=== PATIENT | female | born 1960 | race Caucasian/White ===

== ENCOUNTER 2023-07-04 17:17 | Emergency (ER) | payer OTHER, SELFPAY ==
[2023-07-04 17:31] VITALS: BP 141/69; PULSE 59; RESP 16; TEMP 36.9; O2SAT 100
--- NOTE | 2023-07-04 17:48 | ED.UPPEXIN ---
HPI - Extremity Injury (Upper) General Chief Complaint: Extremity Problem,Nontraumatic Stated Complaint: right shoulder pain Time Seen by Provider: 07/04/23 18:03 Source: patient and RN notes reviewed Mode of arrival: ambulatory Limitations: no limitations History of Present Illness HPI narrative: 63-year-old female presents with concern for right shoulder pain. She reports she has had pain since mid April. She denies known injury or trauma. She reports she has tried multiple things such as medication, heat, ice, 10s units without relief. She reports pain is progressing, it is painful to reach in her back pocket. At the end of the day after typing a lot her hand feels numb. Denies warmth, redness, bruising. MD complaint: injury to: right and shoulder Related Data Home Medications Medication Instructions Recorded Confirmed acetaminophen 300 mg-codeine 30 mg tablet 07/04/23 tablet estradiol 0.025 mg/24 hr weekly 1 patch transdermal WEEKLY 07/04/23 07/04/23 transdermal patch ibandronate 150 mg tablet 150 mg PO ONCE 07/04/23 07/04/23 levothyroxine 75 mcg tablet 75 mcg PO DAILY 07/04/23 07/04/23 (Synthroid) metoprolol tartrate 25 mg tablet 50 mg PO DAILY 07/04/23 07/04/23 montelukast 10 mg tablet 10 mg PO DAILY 07/04/23 07/04/23 (Singulair) rosuvastatin 10 mg tablet (Crestor) 10 mg PO DAILY 07/04/23 07/04/23 Allergies Allergy/AdvReac Type Severity Reaction Status Date / Time No Known Allergies Allergy Verified 07/04/23 17:57 Review of Systems Review of Systems: CONSTITUTIONAL: Denies malaise, chills, sweats, or fever. SKIN: Denies rash or itching, open skin, laceration, abrasion, redness, warmth, swelling. MUSCULOSKELETAL: Reports right shoulder pain NEUROLOGIC: Denies numbness, weakness All systems reviewed & are unremarkable except as noted in HPI and below PMFSH Comments At time of signature, agree with nursing past medical, surgical, social and family history. There is no relevant family history pertinent to the presenting complaint Exam Narrative: GENERAL: Well-appearing, well-nourished, and in no acute distress. HEAD: Normocephalic, atraumatic. EYES: PERRLA, conjunctivae clear NECK: Supple. CHEST: Speaks in full sentences. No respiratory distress. HEART: Regular rate and rhythm. Normal and equal peripheral pulses. EXTREMITIES: Right upper extremity has grossly normal strength and sensation, limited range of motion. No edema or ecchymosis. Normal sensation with sensitivity to light touch and pain. No point tenderness. No open wounds, no skin tenting, no devitalized tissue or atrophy, no trophic changes, no obvious deformity, alignment normal, nearby joints and structures intact. Distal pulses palpable and equal bilaterally, skin warm, dry, pink. Capillary refill less than 3 seconds. SKIN: Warm, dry, no rash. NEURO: Alert and oriented x3. PSYCH: Normal mood and affect Course Course Emergency Course: Patient is aware of diagnosis, understands and agrees to treatment plan. Anticipatory guidance given. Patient agrees to follow-up as directed and is aware of reasons to seek care at the emergency department. Portions of this record may have been created with voice recognition software Level of Care: Express Care Visit Vital Signs Vital signs: Vital Signs Temperature 98.4 F 07/04/23 17:31 Pulse Rate 59 L 07/04/23 17:31 Respiratory Rate 16 07/04/23 17:31 Blood Pressure 141/69 H 07/04/23 17:31 Pulse Oximetry 100 07/04/23 17:31 Oxygen Delivery Room Air 07/04/23 17:31 Temperature 98.4 F 07/04/23 17:31 Pulse Rate 59 L 07/04/23 17:31 Respiratory Rate 16 07/04/23 17:31 Blood Pressure 141/69 H 07/04/23 17:31 Pulse Oximetry 100 07/04/23 17:31 Oxygen Delivery Room Air 07/04/23 17:31 Reviewed. MDM - Extremity Injury (Upper) MDM Narrative Medical decision making narrative: Patients pain is consistent with musculoskeletal etiology. No signs of neuro
== END 2023-07-04 18:15 | disposition home or self-care (01) ==
PROVIDERS: Emergency Provider Nurse Practitioner
DX: M25.511 Pain in right shoulder (principal); Z79.899 Other long term (current) drug therapy
CPT/HCPCS: 99213; G0463

== ENCOUNTER 2023-08-18 15:30 | Outpatient (RCR) | payer OTHER, SELFPAY ==
--- NOTE | 2023-07-29 16:30 | OPREHPOC ---
Outpatient Therapy Plan of Care This is a Multidisciplinary Plan of Care that may contain components documented by all disciplines (PT, OT, and ST.) PT Problem 1 PT Problem #1 Knowledge Deficit PT Goal 1 Goal 1* indep with HEP PT Problem 2 PT Problem #2 Pain PT Goal 1 Goal 1* pt report pain at worst in R shoulder of 3/10 2* with palpation, minimal spasm over R upper traps PT Problem 3 PT Problem #3 Impaired Strength PT Goal 1 Goal improve gleno-humeral position and muscle recruitment of shoulder girdle: 1* pt able to perform 20 reps of prone scapular strengthening exercises 2* with motions of standing R shoulder, no visible activation of R upper traps
--- NOTE | 2023-07-29 16:30 | PTOPEVAL1 ---
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 Onset was in April with increased activity of moving. She has had shoulder pain in the past. Also has scoliosis. She is active and motivated, has been doing her previous HEP with theraband. With the evaluation, she has poor positioning of her shoulder, with rounded posture and winging of the scapula; weakness of scapular musculature with recruitment of upper traps for active shoulder motions; Pain over lateral GH joint. And spasms over R upper traps. Skilled PT services are indicated for modalities to decrease pain, therapeutic exercises to increase scapular- thoracic strength and improve recruitment of the musculature of her shoulder girdle, with education for HEP and posture. Plan of Care Interventions Hot Pack/Cold Pack,Manual Therapy,Neuro Re- educ
--- NOTE | 2023-08-21 13:46 | PTOPDC ---
Assessment and note entered by Marylou Ho, PT Discharge Information Assessment Status Discharge - Pt Not Present Diagnosis R shoulder pain Onset End April 2023 Assessment PT Clinical Summary Marissa has received 4 PT sessions. She called today and canceled the remaining PT appointments, said she has a rotator cuff tear and dr told her to stop therapy. Discharge PT treatments. The goals were not assessed. Plan of Care PT Services Indicated No
== END 2023-08-21 14:41 | disposition home or self-care (01) ==
LOC: ANHPT 15:30
PROVIDERS: Visit Provider Nurse Practitioner
DX: M75.81 Other shoulder lesions, right shoulder (principal)
CPT/HCPCS: 97110; 97140; 97161

== ENCOUNTER 2023-12-08 15:07 | Outpatient (CLI) | payer OTHER, SELFPAY ==
--- NOTE | ~2023-12-08 | CT_ITS ---
CT of the Abdomen and Pelvis: Indication: Abdominal pain Technique: 2.5 mm axial scans were obtained through the abdomen and pelvis following intravenous adm inistration of 100 cc of Omnipaque 350. Dose reduction technique was used on this scan by utilizing a utomated exposure control and iterative reconstruction technique. The dose-length product (DLP) was 2 26.57 mGy-cm. Findings: Scans through the lung bases are unremarkable. The liver, spleen, pancreas, gallbladder, adrenals and right kidney are within normal limits. 7 mm no nobstructing left renal stone noted. No evidence of aortic aneurysm. No lymphadenopathy. No bowel obstruction or bowel wall thickening. There is no evidence to suggest acute appendicitis. Images through the pelvis were performed. Urinary bladder unremarkable. No pelvic mass seen. No ascit es. Impression: 7 mm nonobstructing left renal stone. Reviewed, dictated and finalized at [facility]. 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
[2023-12-08 15:38] LABS: Estimated Glomerular Filt Rate > 60
== END 2023-12-08 15:08 | disposition home or self-care (01) ==
PROVIDERS: PCP Family Medicine; Visit Provider Nurse Practitioner
DX: N20.0 Calculus of kidney (principal)
CPT/HCPCS: 74177; Q9967

== ENCOUNTER 2024-01-16 00:37 | Day surgery (SDC) | payer OTHER, SELFPAY ==
[2024-01-06 10:50] VITALS: BMI 22.2
--- NOTE | 2024-01-14 10:38 | SUR.PREOP ---
Patient called regarding upcoming procedure. Voicemail left regarding new appointment time.
[2024-01-16 12:39] VITALS: BP 132/66; PULSE 72; RESP 20; TEMP 36.1; O2SAT 100
[2024-01-16] MEDS: LACTATED RINGERS 1,000 ML 150 ML IV CONT (12:53)
--- NOTE | 2024-01-16 13:14 | P.PNAN_ITS ---
Anes - Initial Pre Proc Eval Procedure: Operation Date: 01/16/24 14:30 Proposed Procedures p Esophagogastroduodenoscopy EGD - Odell Worthy MD Date/Time: 01/16/24 13:14 Surgeon: Odell Worthy MD Pre Op Diagnosis: GERD, Eructation, Vomiting Patient Data Age: 63 Gender: F Height: 1.6 m Weight: 55.9 kg Last Vital Signs Temp 36.1 C L 01/16/24 12:39 Pulse 72 01/16/24 12:39 Resp 20 01/16/24 12:39 BP 132/66 01/16/24 12:39 Pulse Ox 100 01/16/24 12:39 O2 Del Method Room Air 01/16/24 12:39 Allergies Allergy/AdvReac Type Severity Reaction Status Date / Time Sulfa (Sulfonamide Allergy Unknown Unknown Verified 01/16/24 12:38 Antibiotics) Home Medications Medication Instructions Recorded Confirmed Type multivitamin 1 tablet PO DAILY 07/09/23 01/06/24 History estradiol 0.025 mg/24 hr weekly 1 patch transdermal WEEKLY 90 days 08/08/23 01/06/24 Rx transdermal patch #12 ea ibandronate 150 mg tablet 150 mg PO MONTHLY #3 tabs 08/08/23 01/06/24 Rx levothyroxine 75 mcg tablet 75 mcg PO DAILY #90 tabs 08/08/23 01/06/24 Rx (Synthroid) metoprolol succinate 25 mg 50 mg PO DAILY #180 tabs 08/08/23 01/06/24 Rx tablet,extended release 24 hr rosuvastatin 10 mg tablet (Crestor) 10 mg PO DAILY #90 tabs 08/08/23 01/06/24 Rx fexofenadine 60 mg tablet (Angelica 60 mg PO Q12H 08/20/23 01/06/24 History Allergy) guaifenesin 600 mg tablet, 600 mg PO BID 08/20/23 01/06/24 History extended release 12 hr (Mucinex) acetaminophen 300 mg-codeine 30 mg 1 tablet PO Q6H PRN cough #20 tabs 10/10/23 01/06/24 Rx tablet fluticasone 500 mcg-salmeterol 50 1 inh inhalation Q12H 11/19/23 01/06/24 History mcg/dose blistr powdr for inhalation (Wixela Inhub) ibandronate 150 mg tablet 150 mg PO MONTHLY 11/19/23 01/06/24 History pantoprazole 20 mg tablet,delayed 20 mg PO QAM 6 weeks #42 tabs 12/16/23 01/06/24 Rx release cefdinir 300 mg capsule 300 mg PO Q12H #14 caps 01/05/24 01/06/24 Rx codeine 10 mg-guaifenesin 100 mg/5 10 ml PO Q4-6H PRN cough #120 mL 01/05/24 01/06/24 Rx mL oral liquid methylprednisolone 4 mg tablets in See Rx Instructions PO PER PKG DIR 01/05/24 01/06/24 Rx a dose pack (Medrol (Jerad)) #21 ea Patient hx anesthesia problems: post op nausea/vomiting Family hx anesthesia problems: none Results Review: All pre-operative results and documents have been reviewed as part of the pre- operative evaluation. [facility] Past Medical History Medical History Abnormal heart rhythm Belching CAD (coronary artery disease) Colon cancer screening Gastroesophageal reflux disease History of kidney stones History of skin cancer HLD (hyperlipidemia) Hypertension Hypothyroidism Migraine Osteoporosis Regurgitation of food RUQ pain Thyroid disorder Surgical History Surgical History History of hernia surgery (~2007) 1993,1994,2007 History of hysterectomy (~2007) History of pelvic surgery (~2019) reconstruction with bladder sling History of sinus surgery (~2
--- NOTE | 2024-01-16 13:14 | PM.HPGS ---
History of Present Illness History of Present Illness Consent: Risks, benefits, and alternatives have been discussed and questions answered. Patient agrees to proceed with procedure. Chief complaint: GERD, Eructation, Vomiting Narrative: Marissa Barbosa is a 63 year old female with belching and regurgitation of food that would cause burning, never had egd Review of Systems Review of Systems: All systems reviewed & are unremarkable except as noted in HPI and below PMFSH Past Medical History Medical History Abnormal heart rhythm Belching CAD (coronary artery disease) Colon cancer screening Gastroesophageal reflux disease History of kidney stones History of skin cancer HLD (hyperlipidemia) Hypertension Hypothyroidism Migraine Osteoporosis Regurgitation of food RUQ pain Thyroid disorder Surgical History Surgical History History of hernia surgery (~2007) 1993,1994,2007 History of hysterectomy (~2007) History of pelvic surgery (~2018) reconstruction with bladder sling History of sinus surgery (~2011) History of wisdom tooth extraction (~1977) Family History Family History Mother Hypertension High cholesterol Thyroid disorder Father Hypertension High cholesterol Grandparent Hypertension High cholesterol Other Skin cancer Thyroid disorder Social History Social History Smoking status: Never smoker Alcohol intake: current Alcohol use details: rarely Substance use: never Substance use type: does not use Current Housing: Decline to Answer Concerned About Future Housing: Decline to Answer Difficulty Paying Gas/Electric Bills: Decline to Answer Difficulty Paying for Meds: Decline to Answer Currently Unemployed: Decline to Answer Education: Decline to Answer Difficulty w/ Childcare or Family Care: Decline to Answer Living arrangements: with family Occupation/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: occupation 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 Spiritual care concerns: No Meds Home Medications and Allergies Home Medications Medication Instructions Recorded Confirmed Type multivitamin 1 tablet PO DAILY 07/09/23 01/06/24 History estradiol 0.025 mg/24 hr weekly 1 patch transdermal WEEKLY 90 days 08/08/23 01/06/24 Rx transdermal patch #12 ea ibandronate 150 mg tablet 150 mg PO MONTHLY #3 tabs 08/08/23 01/06/24 Rx levothyroxine 75 mcg tablet 75 mcg PO DAILY #90 tabs 08/08/23 01/06/24 Rx (Synthroid) metoprolol succinate 25 mg 50 mg PO DAILY #180 tabs 08/08/23 01/06/24 Rx tablet,extended release 24 hr rosuvastatin 10 mg tablet (Crestor) 10 mg PO DAILY #90 tabs 08/08/23 01/06/24 Rx fexofenadine 60 mg tablet (Angelica 60 mg PO Q12H 08/20/23 01/06/24 History Allergy) guaifenesin 600 mg tablet, 600 mg PO BID 08/20/23 01/06/24 History extended release 12 hr (Mucinex) acetaminophen 300 mg-codeine 30 mg 1 tablet PO Q6H PRN cough #20 tabs 10/10/23 01/06/24 Rx tablet fluticasone 500 mcg-salmeterol 50 1 inh inhalation Q12H 11/19/23 01/06/24 History mcg/dose blistr powdr for inhalation (Wixela Inhub) ibandronate 150 mg tablet 150 mg PO MONTHLY 11/19/23 01/06/24 History pantoprazole 20 mg tablet,delayed 20 mg PO QAM 6 weeks #42 tabs 12/16/23 01/06/24 Rx release cefdinir 300 mg capsule 300 mg PO Q12H #14 caps 01/05/24 01/06/24 Rx codeine 10 mg-guaifenesin 100 mg/5 10 ml PO Q4-6H PRN cough #120 mL 01/05/24 01/06/24 Rx mL oral liquid methylprednisolone 4 mg tablets in See Rx Instructions PO PER PKG DIR 01/05/24 01/06/24 Rx a dose pack (Medrol (Jerad)) #21 ea Allergies Allergy/AdvReac Type Severity Reaction Status Date / Time Sulfa (Sulfonamide Allergy Unknown Unknown Verified 01/16/24 12:38 Antibiotics) Riddhi
[2024-01-16 13:28] VITALS: BP 125/68; PULSE 64; RESP 21; O2SAT 100
[2024-01-16 13:38] VITALS: BP 134/66; PULSE 67; RESP 22; O2SAT 100
[2024-01-16 13:48] VITALS: BP 139/79; PULSE 78; RESP 16; O2SAT 100
== END 2024-01-16 13:55 | disposition home or self-care (01) ==
PROVIDERS: PCP Family Medicine; Visit Provider Internal Medicine Gastroenterology
PROC: 0DJ08ZZ Inspection of Upper Intestinal Tract, Via Natural or Artificial Opening Endoscopic (ICD-10-PCS; CPT 43235; principal; 2024-01-16 14:30)
DX: K29.70 Gastritis, unspecified, without bleeding (principal); I25.10 Atherosclerotic heart disease of native coronary artery without angina pectoris; I10 Essential (primary) hypertension; E78.5 Hyperlipidemia, unspecified; E03.9 Hypothyroidism, unspecified; M81.0 Age-related osteoporosis without current pathological fracture; E07.9 Disorder of thyroid, unspecified; Z79.51 Long term (current) use of inhaled steroids
CPT/HCPCS: 43239; 88305; J2001; J2704; J7120

== ENCOUNTER 2024-04-08 22:31 | Emergency (ER) | payer OTHER, SELFPAY ==
--- NOTE | ~2024-04-08 | CT_ITS ---
EXAMINATION: CT abdomen pelvis wo con DATE: 04/09/2024 00:31 INDICATION: Left flank pain and left leg pain. TECHNIQUE: Computed tomography (CT) of the abdomen and pelvis was performed without intravenous contr ast. Automated exposure control and iterative reconstruction technique were employed. The dose-length product was 215.24 mGy-cm. COMPARISON: 12/08/2023 FINDINGS: Lung bases are clear. Heart size is normal. Small amount of atherosclerotic coronary artery calcific location. No pericardial or pleural effusion. Liver, gallbladder, spleen, pancreas, right kidney and bilateral adrenal glands are normal. There is a 5 x 3 x 3 mm proximal left ureteral stone with mild l eft hydronephrosis. No other urolithiasis in either kidney or ureter. The uterus is not identified an d has likely been surgically resected. Normal appendix arising from the tip the cecum which is positi oned in the deep pelvis at the uterine fossa. No bowel obstruction. Bladder is normal. No free intrap eritoneal gas or fluid. No pathologically enlarged abdominal or pelvic lymphadenopathy. Moderate lumb ar levoscoliosis with moderate spondylosis. Couple bone islands at the proximal right femur. IMPRESSION: 1. 5 x 3 x 3 mm proximal left ureteral stone with mild left hydronephrosis. Reviewed, dictated and finalized at location A.
[2024-04-08 22:35] VITALS: BP 146/71; PULSE 62; RESP 20; TEMP 36.4; O2SAT 100
[2024-04-08 23:26] LABS: Basophils Percent Auto 0.1 % (0.2-1.2); Eosinophils Percent Auto 0.1 % (0-4.4); Hematocrit 38.8 % (37.0-47.0); Hemoglobin 12.9 g/dL (12.0-15.0); Immature Granulocyte Absolute 0.02 K/mm3 (0.00-0.031); Immature Granulocyte Percent A 0.3 % (0-0.5); Lymphocytes Absolute Auto 0.62 K/mm3 (0.9-3.2); Lymphocytes Percent Auto 8.5 % (18.3-44.2); Mean Corpuscular HGB Conc 33.2 g/dl (32-36); Mean Corpuscular Hemoglobin 31.1 pg (26-34); Mean Corpuscular Volume 93.5 fl (80-100); Mean Platelet Volume 10.1 fl (7.4-10.4); Monocytes Absolute Auto 0.1 K/mm3 (0.1-0.6); Monocytes Percent Auto 1.8 % (2.6-8.5); Neutrophils Absolute Auto 6.5 K/mm3 (1.3-6.7); Neutrophils Percent Auto 89.2 % (45.5-73.1); Platelet Count Result 220 k/mm3 (150-375); Red Blood Count 4.15 M/mm3 (4.2-5.4); Red Cell Distribution Width 11.9 % (11.5-14.5); White Blood Count 7.3 K/mm3 (4.5-10.0)
[2024-04-08 23:32] LABS: Appearance Urine Clear (Clear); Bacteria Urine None Seen /hpf; Bilirubin Urine Negative (Negative); Blood Urine 3+ (Negative); Color Urine Yellow (Yellow); Glucose Urine UA Negative (Negative); Ketones Urine Negative (Negative); Leukocyte Esterase Ur Negative LEU/UL (Negative); Nitrate Urine Negative (Negative); Non Pathogenic Casts 0-2; Protein Urine Negative (Negative); Specific Grav Ur 1.006 (1.001-1.035); Squamous Epithelial Cell Urine None Seen /hpf (Few); Urobilinogen Urine 0.2 mg/dL (<2.0); WBC Urine 0-5 /hpf (0-3); pH Urine 6.5 (5.0-9.0)
[2024-04-08 23:35] LABS: Add Urine Microscopic? YES
[2024-04-08 23:37] LABS: Alanine Aminotransferase 21 U/L (6-35); Alkaline Phosphatase 67 U/L (38-126); Anion Gap 9 mmol/L (4-12); Aspartate Amino Transferase 31 U/L (14-36); Bilirubin,Total 1.2 mg/dL (0.2-1.3); Blood Urea Nitrogen 12 mg/dL (7-17); Carbon Dioxide 25 mmol/L (22-30); Chloride 104 mmol/L (98-107); Estimated CRCL calculation 59 ml/min; Estimated Glomerular Filt Rate > 60; Glucose 149 mg/dL (65-110); Lipase 88 U/L (23-300); Potassium 4.1 mmol/L (3.4-5.0); Sodium 138 mmol/L (137-145)
--- NOTE | 2024-04-09 00:48 | ED.GENADULT ---
HPI - General Adult General Chief complaint: Abdominal Pain Stated complaint: left flank pain Time Seen by Provider: 04/09/24 00:47 History of Present Illness HPI narrative: patient is a 63-year-old female who presents emergency department chief complaint of left flank pain. Patient reports she has history kidney stones reports around 6:00 a.m. is 40 started having pain in left flank. The patient reports pain is sharp reports feels similar to whenever she has had kidney stones before in the past patient does report that she has had to have lithotripsy patient reports that she is feeling nauseated as well. Related Data Home Medications Medication Instructions Recorded Confirmed multivitamin 1 tablet PO DAILY 07/09/23 04/08/24 fexofenadine 60 mg tablet (Angelica 60 mg PO Q12H 08/20/23 04/08/24 Allergy) fluticasone 500 mcg-salmeterol 50 1 inh inhalation Q12H 11/19/23 04/08/24 mcg/dose blistr powdr for inhalation (Wixela Inhub) ibandronate 150 mg tablet 150 mg PO MONTHLY 11/19/23 04/08/24 Allergies Allergy/AdvReac Type Severity Reaction Status Date / Time Sulfa (Sulfonamide Allergy Unknown Unknown Verified 04/08/24 14:11 Antibiotics) Review of Systems Review of Systems: A 10 system review of systems was completed on the patient and is negative except for what is stated in the HPI. Nursing and ancillary documentation was reviewed. [facility] Past Medical History Medical History Abnormal heart rhythm CAD (coronary artery disease) Colon cancer screening Gastroesophageal reflux disease History of kidney stones History of skin cancer HLD (hyperlipidemia) Hypertension Hypothyroidism Migraine Osteoporosis Regurgitation of food RUQ pain Thyroid disorder Surgical History Surgical History History of hernia surgery (~2007) 1993,1994,2007 History of hysterectomy (~2007) History of pelvic surgery (~2018) reconstruction with bladder sling History of sinus surgery (~2011) History of wisdom tooth extraction (~1977) Family History Family History Mother Hypertension High cholesterol Thyroid disorder Father Hypertension High cholesterol Grandparent Hypertension High cholesterol Other Skin cancer Thyroid disorder Social History Social History Smoking status: Never smoker Alcohol intake: current Alcohol use details: rarely Substance use: never Substance use type: does not use Do You Feel Safe in your Home?: Yes Lack of Transportation: No Lack of Food: Never True Current Housing: I Have Housing Concerned About Future Housing: No Difficulty Paying Gas/Electric Bills: Decline to Answer Difficulty Paying for Meds: Decline to Answer Currently Unemployed: No Education: Master's Degree or Higher Difficulty w/ Childcare or Family Care: No Living arrangements: with family Occupation/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 HEAD: Normocephalic, atraumatic. EYES: PERRLA and EOMI. ENT: Nares clear, no rhinorrhea or epistaxis. Mucous membranes moist. NECK: Supple. CHEST: Clear to auscultation. No respiratory distress. HEART: Regular rate and rhythm. No murmur heard. Normal peripheral pulses. ABDOMEN: Soft, nontender, nondistended, normal active bowel sounds. EXTREMITIES: Normal range of motion. No edema. SKIN: Warm, dry, no rash. NEURO: No focal deficits. Alert and oriented x3. PSYCH: Normal mood and affect. Course Vital Signs Vital signs: Vital Signs Temperature 36.4 C 04/08/24 22:35 Pulse Rate 62 04/08/24 22:35 Respiratory Rate 20
[2024-04-09 01:18] VITALS: BP 143/82; PULSE 64; RESP 18; O2SAT 100
[2024-04-09] MEDS: SODIUM CHLORIDE 0.9% IV 1,000 ML 999 ML IV CONT (01:18)
[2024-04-09] MEDS: ONDANSETRON INJ 4 MG/2 ML VIAL IV PUSH (01:18)
[2024-04-09] MEDS: TAMSULOSIN HCL 0.4 MG CAPSULE PO (01:18)
[2024-04-09] MEDS: MORPHINE SULFATE (*CRX) 4 MG/ML INJ IV PUSH (01:18)
--- NOTE | 2024-04-09 02:52 | PC.NURSE ---
please see down time charting.
== END 2024-04-09 02:37 | disposition home or self-care (01) ==
PROVIDERS: Emergency Provider Emergency Medicine; PCP Family Medicine
DX: N13.2 Hydronephrosis with renal and ureteral calculous obstruction (principal); I25.10 Atherosclerotic heart disease of native coronary artery without angina pectoris; E78.5 Hyperlipidemia, unspecified; E03.9 Hypothyroidism, unspecified; K21.9 Gastro-esophageal reflux disease without esophagitis; M81.0 Age-related osteoporosis without current pathological fracture; Z85.828 Personal history of other malignant neoplasm of skin; Z87.442 Personal history of urinary calculi; Z90.710 Acquired absence of both cervix and uterus
CPT/HCPCS: 36415; 74176; 80053; 81001; 83690; 85025; 96361; 96374; 96375; 99284; A9270; J2270; J2405; J7030

== ENCOUNTER 2024-08-16 16:05 | Outpatient (CLI) | payer BC, SELFPAY ==
--- NOTE | ~2024-08-16 | MR_ITS ---
EXAMINATION: MR ankle LT wo con DATE: 08/16/2024 16:49 INDICATION: Posterior tibial tendinitis TECHNIQUE: Magnetic resonance imaging (MRI) of the left ankle was performed without intravenous contr ast. Sequences included sagittal, coronal, and axial proton-density weighted fast spin echo without a nd with fat saturation. COMPARISON: None. FINDINGS: Medial ankle ligaments: Deep and superficial deltoid ligaments as well as the spring ligament are normal. Lateral ankle ligaments: There is thickening of the anterior inferior tibiofibular ligament and the distal tibiofibular syndes mosis suggestive of scarring related to chronic high ankle sprain. The posterior inferior tibiofibula r ligament. The posterior tibiofibular ligament is normal. The anterior talofibular, calcaneofibular and posterior talofibular ligaments are normal. Tendons: Achilles tendon is normal. Mild tendinopathy and longitudinal split tear of the peroneus brevis tendo n beginning at the level of the retromalleolar groove for the tendon has a C shaped configuration ext ending around the normal peroneus longus tendon at the level of the retromalleolar groove. The perone us brevis tendon split tear completes to separate the tendon into 2 separate components immediately d istal to the tip of the lateral malleolus. The tibialis anterior and extensor hallucis longus and ext ensor digitorum longus tendons are normal. The tibialis posterior, flexor digitorum longus and flexor hallucis longus tendons are normal. Plantar fascia: Moderate-sized plantar calcaneal spur with thickening without significant increased signal of the pro ximal central component of the plantar aponeurosis consistent with chronic enthesopathy. No associate d marrow or surrounding soft tissue edema to suggest acute plantar fasciitis. Bones/other: Bone alignment is normal. There is normal marrow signal with no reactive edema, fracture or pathologi c marrow replacing process. Joint spaces are relatively preserved. Fluid: Physiologic amount fluid in the joint spaces. No abnormal fluid collections. IMPRESSION: 1. Mild peroneus brevis tendinopathy with longitudinal split tear. 2. Likely scarring related to chronic high ankle sprain of the anterior-inferior tibiofibular ligamen t and distal tibiofibular syndesmosis. 3. Chronic plantar enthesopathy with moderate-sized plantar calcaneal spur. Reviewed, dictated and finalized at location A. IMPRESSION: 1. Mild peroneus brevis tendinopathy with longitudinal split tear. 2. Likely scarring related to chronic high ankle sprain of the anterior-inferio r tibiofibular ligament and distal tibiofibular syndesmosis. 3. Chronic plantar enthesopathy with moderate-sized plantar calcaneal spur.
== END 2024-08-16 16:06 | disposition home or self-care (01) ==
LOC: MICIMG 16:08
PROVIDERS: PCP Podiatrist Foot & Ankle Surgery; Visit Provider Podiatrist Foot & Ankle Surgery
DX: M76.822 Posterior tibial tendinitis, left leg (principal); M77.32 Calcaneal spur, left foot
CPT/HCPCS: 73721

== ENCOUNTER 2024-10-12 09:24 | Outpatient (CLI) | payer BC, SELFPAY ==
--- NOTE | ~2024-10-12 | XR_ITS ---
Exam: Abdomen 1V HISTORY: KIDNEY STONE; MID BACK PAIN BILATERALLY COMPARISON: Reference is made to a noncontrast enhanced CT examination of the abdomen and pelvis date d 04/09/2024 which demonstrated a left proximal ureteral stone and mild left-sided TECHNIQUE: Supine images of the abdomen and pelvis. FINDINGS: Bowel gas pattern is non-obstructive and nonspecific. There is no free air or deep costophrenic sulci. No pathologic calcifications are seen. Levoscoliotic curvature of the thoracolumbar spine is noted. Calcified disc bulge to the left of midline at the level of L2/L3, unchanged from prior. IMPRESSION: Nonspecific, nonobstructive bowel gas pattern. No discrete renal calcifications detected bilaterally. If clinical suspicion persists, cross-sectional imaging (noncontrast enhanced CT examination of the a bdomen and pelvis) is suggested for further evaluation. Reviewed, dictated and finalized at location A. 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 No discrete renal calcifications detected bilaterally. If clinical suspicion persists, cross-sectional imaging (noncontrast enhanced C T examination of the abdomen and pelvis) is suggested for further evaluation.
== END 2024-10-12 09:25 | disposition home or self-care (01) ==
PROVIDERS: PCP Family Medicine; Visit Provider Nurse Practitioner
DX: N20.1 Calculus of ureter (principal)
CPT/HCPCS: 74018

== ENCOUNTER 2024-12-06 13:11 | Outpatient (CLI) | payer BC, SELFPAY ==
--- NOTE | ~2024-12-06 | US_ITS ---
EXAMINATION: US retroperitoneal comp DATE: 12/06/2024 13:34 INDICATION: Nephrolithiasis. TECHNIQUE: Multiple ultrasound grayscale images of the kidneys were obtained. COMPARISON: CT abdomen and pelvis 04/09/2024 FINDINGS: The right kidney measures 9.9 x 4.7 x 4.6 cm. The left kidney measures 10.3 x 4.2 x 4.4 cm. The kidne ys demonstrate normal parenchymal echogenicity. There is no hydronephrosis. The bladder is normal. IMPRESSION: 1. Normal kidneys. No hydronephrosis. Reviewed, dictated and finalized at location [facility]. [facility]
== END 2024-12-06 13:12 | disposition home or self-care (01) ==
PROVIDERS: PCP Nurse Practitioner; Visit Provider Nurse Practitioner
DX: N20.0 Calculus of kidney (principal)
CPT/HCPCS: 76770

== ENCOUNTER 2025-03-29 09:42 | Outpatient (CLI) | payer BC, SELFPAY ==
--- NOTE | ~2025-03-29 | MM_ITS ---
EXAMINATION: MM screening bora BI w maegan HISTORY: Screening TECHNIQUE: Craniocaudal and mediolateral oblique 3-D tomosynthesis images were obtained and synthetic 2-D images were generated. CAD analysis was submitted and interpreted. COMPARISON: No prior mammogram is available for comparison at this institution. BREAST PARENCHYMAL COMPOSITION: Dense: The breasts are heterogeneously dense, which may obscure small masses FINDINGS: There is no evidence of suspicious mass, calcification, or architectural distortion to sugg est malignancy in either breast. There has been no suspicious interval change. IMPRESSION: 1. No mammographic evidence of malignancy. 2. Recommend routine screening mammography in one year. BI-RADS Category 1: Negative Reviewed, dictated and finalized at location B.
--- NOTE | ~2025-03-29 | DEXA_ITS ---
Bone Density Report Name: POONAM VICENTE Age: 64 Sex: Female Ethnicity: White Date of : 1960 Indication: postmenopausal; screening for osteoporosis; height loss; Referring Provider: ANGELITA GORDILLO Study: Bone densitometry was performed. Exam Date: March 29, 2025 Accession number: [id number] Bone Density: Region BMD T-score Z-score Classification AP Spine(L1-L4) 0.836 -1.9 -0.2 Osteopenia Femoral Neck (Left) 0.692 -1.4 0.1 Osteopenia Total Hip (Left) 0.771 -1.4 -0.2 Osteopenia Femoral Neck (Right) 0.609 -2.2 -0.7 Osteopenia Total Hip (Right) 0.735 -1.7 -0.5 Osteopenia Total Hip Mean 0.753 -1.6 -0.4 Osteopenia World Health Organization criteria for BMD impression classify patients as: Normal (T-score at or above -1.0), Osteopenia (T-score between -1.0 and -2.5), or Osteoporosis (T-score at or below -2.5). 10-year Fracture Risk(1): Major Osteoporotic Fracture 10% Hip Fracture 1.7% Reported Risk Factors: [place] (), Neck BMD=0.609, BMI=21.3 (1) FRAX(R) Version 3.08. Fracture probability calculated for an untreated patient. Fracture probability may be lower if the patient has received treatment. Clinical Information Provided by Patient: Has used the following medications: Boniva (i.e. ibandronate), HRT (i.e. estrogen/hormone therapy), Vitamin D, Calcium Patient maximum height was 64 Menopause Age: 48 No regular weight bearing exercise Does not regularly consume dairy products Drinks caffeinated beverages Onset of menses at age 17 Number of children 2 Impression: The patient has low bone mass, based on the Right Femoral Neck T-score. The patient has an estimated ten-year risk of hip fracture of 1.7% and an estimated ten-year risk of major fracture of 10%, based on the WHO FRAX algorithm. Discussion: BONE DENSITY IS LOW AT ONE OR MORE SKELETAL SITES. This patient's lowest T-score is low at one or more skeletal sites. It meets the World Health Organization's (WHO) criteria for ?low bone mass? (T-score between -1.0 and -2.5). The patient's 10-year risk of fracture as calculated by FRAX is less than the threshold where pharmacological therapy is recommended by the National Osteoporosis Foundation (NOF). However, all treatment decisions require clinical judgment and consideration of individual patient factors, including patient preferences, comorbidities, previous drug use, risk factors not captured in the FRAX model (e.g., frailty, falls, vitamin D deficiency, increased bone turnover, interval significant decline in bone density) and possible under or overestimation of fracture risk by FRAX. The patient should follow a healthful lifestyle (good nutrition with adequate calcium and vitamin D, and appropriate weight-bearing exercise). Follow-Up: Consider repeating this study in 2 to 3 years to reassess this patient's status, or sooner if there is some new clinical indication. Reported by: RENARD on 03/29/2025 10:50:00 AM. Reviewed, dictated and finalized at location A.
--- OUTSIDE RECORDS SUMMARY | 2025-03-29 10:26 | XMS_ITS ---
Author Organization [facility] ([address]) Address [address] [place] [address] Care Team Providers Care Wine Pasteurizer Name Role Phone Angelica Tabares Primary Care Provider Margoth Carrera Unavailable [phone] Perry Olivera [phone] REASON FOR VISIT SCIT (Aeroallergen) Encounters Encounter Location Date Provider Diagnosis [facility] [address] [place] [address] 03/22/2025 Perry Olivera Plan Of Treatment Next Appt Details Provider Name:Perry Olivera , 04/05/2025 04:40:00 PM, [address], [place], [address], Provider Name:Perry Olivera , 04/12/2025 08:00:00 AM, [address], [place], [address], Provider Name:Perry Olivera , 04/19/2025 03:00:00 PM, [address], [place], [address], Provider Name:Margoth Christensen , 06/09/2025 04:15:00 PM, [address], [place], [address], Progress Notes * Buck BARBOSAOB:1960 (64 yo F)Acc No.[id number]:03/22/2025 SCIT-Aeroallergen Patient: Marissa RAYA Provider: Kizzy Olivera MD :1960 A ge:64 Y S ex:Female Date:03/22/2025 Address:[address] [place], [place] [id number] Pcp:Angelica Tabares Subjective: * Chief Complaints: * 1 . SCIT (Aeroallergen). * Medical History: Objective: * Vitals: Assessment: Plan: * Treatment: * Billing Information: * Visit Code: * Procedure Codes: * Electronic signature of Sandy Olivera MD, FAAAAI on 03/29/2025 at 10:26 AM CDT Sign off status: Pending * Provider: Kizzy Olivera MD Date: 0 03/22/2025 Generated for Huangi alan/Junior/eTransmitting on: 03/29/2025 10:26 AM CDT
--- OUTSIDE RECORDS SUMMARY | 2025-03-29 10:26 | XMS_ITS ---
Author Organization [facility] [place] ([address]) Address [address] [place] [address] Care Team Providers Care Manufacturing Electrician Name Role Phone Angelica Tabares Primary Care Provider Margoth Carrera Unavailable [phone] Perry Olivera Unavailable [phone] REASON FOR VISIT SCIT - Traditional Schedule Allergy immunotherapy Encounters Encounter Location Date Provider Diagnosis [facility] [address] [place] [address] 03/23/2025 Perry Olivera Allergic rhinitis du e to pollen J30.1 ; Allergic rhinitis due to animal (cat) (dog) hair and dander J30.81 ; Other allergic rhinitis J30.89 and Other chronic allergic conjunctivitis H10.45 Assessments Encounter Date Diagnosis (ICD Code) Assessment Notes Treatment Notes Treatment Clinical Notes Section Notes 03/23/2025 Allergic rhinitis due to pollen (ICD-10 - J30.1) 03/23/2025 Allergic rhinitis due to animal (cat) (dog) hair and dander (ICD-10 - J30.81) 03/23/2025 Other allergic rhinitis (ICD-10 - J30.89) 03/23/2025 Other chronic allergic conjunctivitis (ICD-10 - H10.45) Plan Of Treatment Next Appt Details Follow Up: 1 Week, Reason: Provider Name:Perry Olivera , 04/05/2025 04:40:00 PM, [address], [place], [address], Provider Name:Perry Olivera , 04/12/2025 08:00:00 AM, [address] [facility], [address], [place], [address], Provider Name:Perry Olivera , 04/19/2025 03:00:00 PM, [address] [facility], [address], [place], [address], Provider Name:Margoth Christensen , 06/09/2025 04:15:00 PM, [address] [facility], [address], [place], [address], Progress Notes * Buck BARBOSAOB:1960 (64 yo F)Acc No.[id number]:03/23/2025 SCIT-Aeroallergen Patient: Marissa RAYA Provider: Kizzy Olivera MD :1960 A ge:64 Y S ex:Female Date:03/23/2025 Address:[address] [place], [place] [id number] Pcp:Angelica Tabares Subjective: * Chief Complaints: * 1 . SCIT - Traditional Schedule Allergy immunotherapy. * HPI: * Introduction: The patient is here for scheduled immunotherapy. Please see the attached specialty form regarding the specifics of the administration of these vaccines. As per our protocol, they must undergo a screening health questionnaire (medication changes, reaction(s) to last immunotherapy dose(s), current health status, ACT (if appropriate), self-injectable epinephrine on patient(?) and peak flow (if appropriate)). Also, the patient must wait in our office for 30 minutes after receiving the vaccine(s). Furthermore, every patient must have an epinephrine pen (self-injectable) with them at the time of administration--and carry if for the following 1.5 hours after they leave our office. The patient must also have taken their antihistamine the day of the injection, preferably 2 hours prior. The consent form for SCIT (subcutaneous immunotherapy) is on file. * Medical History: Objective: * Vitals: Assessment: * Assessment: 1. A llergic rhinitis due to pollen - J30.1 (Primary) 2 . A llergic rhinitis due to animal (cat) (dog) hair and dander - J30.81 3 . O ther allergic rhinitis - J30.89 4 . O ther chronic allergic conjunctivitis - H10.45 Plan: * Treatment: * Preventive Medicine: Counseling: E xercise A void heavy lifting on days of allergy immunotherapy. M edication instruction: I njectable epinephrine education and instruction w/ discussion of signs and symptoms of anaphylaxis and reasons to seek urgent or emergent care, Watch for side effects of prescribed medications. E ducation: A ble to return demonstration of self-injectable epinephrine. * Follow Up: 1 Week * Billing Information: * Visit Code: * Procedure Codes: 77586 IMMUNOTHERAPY INJECTIONS. * Electronic signature of Sandy Olivera MD, FAAAAI on 03/29/2025 at 10:25 AM CDT Sign off status: Pending * Provider: Kizzy Olivera MD Date: 0 03/23/2025 Generated for Huangi alan/Junior/Karthiksmitting on: 0 03/29/2025 10:25 AM CDT History and Physical Notes * HPI (History of Present Illness) Category Sub-Category Detail Notes Category Not es *Introduction The patient is here for scheduled immunotherapy. Please see the attached specialty form regarding the specifics of the administration of these vaccines. As per our protocol, they must undergo a screening health questionnaire (medication changes, reaction(s) to last immunotherapy dose(s), current health status, ACT (if appropriate), self-injectable epinephrine on patient(?) and peak flow (if appropriate)). Also, the patient must wait in our office for 30 minutes after receiving the vaccine(s). Furthermore, every patient must have an epinephrine pen (self-injectable) with them at the time of administration--and carry if for the following 1.5 hours after they leave our office. The patient must also have taken their antihistamine the day of the injection, preferably 2 hours prior. The consent form for SCIT (subcutaneous immunotherapy) is on file.
--- OUTSIDE RECORDS SUMMARY | 2025-03-29 10:26 | XMS_ITS | Patient Health Record ---
Author Organization [facility] [employer] [place] ([address]) Address [address] [place] [address] Care Team Providers Care Campaign Advisor Name Role Phone Allen Tabaresa Primary Care Provider Margoth Carrera Unavailable [phone] Perry Olivera Unavailable [phone] Allergies Allergen (clinical drug ingredient) Drug/Non Drug Allergy documented on EMR Reaction Allergy Type Onset Date Status Substance with sulfonamide structure and antibacterial mechanism of action (substance) sulfa (uncoded) hives Allergy Active Results Component Value Reference Range Notes Spirometry Reviewed date:05/13/2024 10:43:13 AM Interpretation:Abnormal Performing Lab: Notes/Report: Abnormal SpiroPreBronchodilator_FVC 2.2 SpiroPostBronchodilator_FEF2 5_7 5 1.68 SpiroPreBronchodilator_FEF25_75 1.94 SpiroPreBronchodilator_FEV1 1.8 SpiroPrecentPredictionPost_F EF2 5_75 74.7 SpiroPrecentPredictionPost_FEV1 81.2 SpiroPrecentPredictionPost_F EV1 _OVER_FVC 98.9 SpiroPrecentPredictionPost_FVC 82.5 SpiroPrecentPredictionPre_FE F25 _75 86.2 SpiroPrecentPredictionPre_FEV1 78.6 SpiroPrecentPredictionPre_FE V1_ OVER_FVC 104.2 SpiroPrecentPredictionPre_FVC 75.6 SpiroPredicted_FEF25_75 2.25 SpiroPreBronchodilator_FEV1_ OVE R_FVC 81.67 SpiroPreBronchodilator_PEF 5.67 SpiroPostBronchodilator_FVC 2.4 SpiroPostBronchodilator_FEV1 1.86 SpiroPostBronchodilator_FEV1 _OV ER_FVC 77.52 SpiroPostBronchodilator_PEF 5.16 SpiroPredicted_FVC 2.91 SpiroPredicted_FEV1 2.29 SpiroPredicted_FEV1_OVER_FVC 78.38 SpiroPredicted_PEF 5.53 -Tetanus/Diphtheria Ab Reviewed date:05/24/2024 07:47:57 AM Interpretation:Normal Performing Lab:[address] [id number], Phone - [phone], Director - NMPaolo Notes/Report: Tetanus Antitoxoid IgG Ab 4.25 <0.10 IU/mL Interpretation: Non-Protective <0.10 Protective >=0.10 Results for this test are for research purposes only by the assay's can maker. The performance characteristics of this product have not been established. Results should not be used as a diagnostic procedure without confirmation of the diagnosis by another medically established diagnostic product or procedure. Diphtheria Antitoxoid Ab 0.52 <0.10 IU/mL Interpretation: Non-Protective <0.10 Protective >=0.10 . For research use only. -Haemophilus influenzae B Ig G Reviewed date:05/18/2024 11:44:25 AM Interpretation:Abnormal Performing Lab:[address] [id number], Phone - [phone], Director - Ney Notes/Report: Haemophilus influenzae B IgG 0.20 NOTE: An anti-Hib level of 0.15 ug/mL is generally accepted as the minimum level for protection. Optimal protection post-vaccination requires a level greater than 1.00 ug/mL. -Pneumococcal Ab (23 Serotyp e) Reviewed date:05/24/2024 07:47:51 AM Interpretation:Abnormal Performing Lab:[facility], [address] [place] [id number], Phone - [phone], Director - PhDBCSunshineil Notes/Report: Pneumo Ab Type 1* <0.1 >1.3 ug/mL Pneumo Ab Type 3* 0.1 >1.3 ug/mL Pneumo Ab Type 4* <0.1 >1.3 ug/mL Pneumo Ab Type 8* 6.6 >1.3 ug/mL Pneumo Ab Type 9 (9N)* <0.1 >1.3 ug/mL Pneumo Ab Type 12 (12F)* <0.1 >1.3 ug/mL Pneumo Ab Type 14* <0.1 >1.3 ug/mL Pneumo Ab Type 17 (17F)* <0.1 >1.3 ug/mL Pneumo Ab Type 19 (19F)* <0.1 >1.3 ug/mL Pneumo Ab Type 2* <0.2 >1.3 ug/mL Pneumo Ab Type 20* 12.9 >1.3 ug/mL Pneumo Ab Type 22 (22F)* <0.1 >1.3 ug/mL Pneumo Ab Type 23 (23F)* <0.1 >1.3 ug/mL Pneumo Ab Type 26 (6B)* <0.1 >1.3 ug/mL Pneumo Ab Type 34 (10A)* <0.1 >1.3 ug/mL Pneumo Ab Type 43 (11A)* <0.1 >1.3 ug/mL Pneumo Ab Type 5* <0.1 >1.3 ug/mL Pneumo Ab Type 51 (7F)* 0.1 >1.3 ug/mL Pneumo Ab Type 54 (15B)* <0.2 >1.3 ug/mL Pneumo Ab Type 56 (18C)* 1.1 >1.3 ug/mL Pneumo Ab Type 57 (19A)* 1.0 >1.3 ug/mL Pneumo Ab Type 68 (9V)* <0.1 >1.3 ug/mL Pneumo Ab Type 70 (33F)* 0.2 >1.3 ug/mL *This test was developed and its performance characteristics determined by [employer]. It has not been cleared or approved by the U.S. Food and Drug Administration. FLAG Interpretation: A = Abnormal, H = High, L = Low -Vitamin D, 25-Hydroxy Reviewed date:05/16/2024 07:45:45 AM Interpretation:Normal Performing Lab:[facility], [address] [place] [id number], Phone - [phone], Director - [facility] Notes/Report: Vitamin D, 25-Hydroxy 50.3 30.0-100.0 ng/mL Vitamin D deficiency has been defined by the [place] of [employer] and an Endocrine Society practice guideline as a level of serum 25-OH vitamin D less than 20 ng/mL (1,2). The Endocrine Society went on to further define vitamin D insufficiency as a level between 21 and 29 ng/mL (2). 1. IOM ([place] of [employer]). 2010. Dietary reference intakes for calcium and D. [place]: The National AcademCyber Interns Press. 2. Mahendra MF, Yoni NC, Janet CAMARGO, et al. Evaluation, treatment, and prevention of vitamin D deficiency: an Endocrine Society clinical practice guideline. JCEM. 2010; 96(7):1911-30. -Immunoglobulins A/G/M, Qn, Ser Reviewed date:05/16/2024 07:45:38 AM Interpretation:Normal Performing Lab:[facility], [address] [place] [id number], Phone - [phone], Director - [facility] Notes/Report: Immunoglobulin G, Qn, Serum 005 165-5501 mg/d L Immunoglobulin A, Qn, Serum 183 87-352 mg/dL Immunoglobulin M, Qn, Serum 83 26-217 mg/dL -CBC With Differential/Plate let Reviewed date:05/16/2024 07:45:26 AM Interpretation:Normal Performing Lab:[facility], [address] [place] [id number], Phone - [phone], Director - [facility] Notes/Report: WBC 4.0 3.4-10.8 x10E3/uL RBC 4.38 3.77-5.28 x10E6/uL Hemoglobin 13.9 11.1-15.9 g/dL Hematocrit 40.9 34.0-46.6 % MCV 93 79-97 fL MCH 31.7 26.6-33.0 pg MCHC 34.0 31.5-35.7 g/dL RDW 12.0 11.7-15.4 % Platelets 220 150-450 x10E3/uL Neutrophils 59 Not Estab. % Lymphs 28 Not Estab. % Monocytes 11 Not Estab. % Eos 1 Not Estab. % Basos 1 Not Estab. % Neutrophils (Absolute) 2.4 1.4-7.0 x10E3/uL Lymphs (Absolute) 1.1 0.7-3.1 x10E3/uL Monocytes(Absolute) 0.4 0.1-0.9 x10E3/uL Eos (Absolute) 0.0 0.0-0.4 x10E3/uL Baso (Absolute) 0.0 0.0-0.2 x10E3/uL Immature Granulocytes 0 Not Estab. % Immature Grans (Abs) 0.0 0.0-0.1 x10E3/uL -Haemophilus influenzae B Ig G Reviewed date:10/26/2024 02:41:40 PM Interpretation:Abnormal Performing Lab:[address] [id number], Phone - [phone], Director - Ney Notes/Report: Haemophilus influenzae B IgG 8.95 NOTE: An anti-Hib level of 0.15 ug/mL is generally accepted as the minimum level for protection. Optimal protection post-vaccination requires a level greater than 1.00 ug/mL. -Pneumococcal Ab (23 Serotyp e) Reviewed date:10/26/2024 02:45:10 PM Interpretation:Abnormal Performing Lab:[facility], [address] [place] [id number], Phone - [phone], Director - PhDBCMorales Notes/Report: Pneumo Ab Type 1* 0.3 >1.3 ug/mL Pneumo Ab Type 3* 0.3 >1.3 ug/mL Pneumo Ab Type 4* 2.4 >1.3 ug/mL Pneumo Ab Type 8* 7.4 >1.3 ug/mL Pneumo Ab Type 9 (9N)* 0.3 >1.3 ug/mL Pneumo Ab Type 12 (12F)* 0.5 >1.3 ug/mL Pneumo Ab Type 14* 0.5 >1.3 ug/mL Pneumo Ab Type 17 (17F)* 4.1 >1.3 ug/mL Pneumo Ab Type 19 (19F)* 1.1 >1.3 ug/mL Pneumo Ab Type 2* 7.3 >1.3 ug/mL Pneumo Ab Type 20* 25.4 >1.3 ug/mL Pneumo Ab Type 22 (22F)* 2.5 >1.3 ug/mL Pneumo Ab Type 23 (23F)* 1.8 >1.3 ug/mL Pneumo Ab Type 26 (6B)* <0.1 >1.3 ug/mL Pneumo Ab Type 34 (10A)* 0.7 >1.3 ug/mL Pneumo Ab Type 43 (11A)* 0.6 >1.3 ug/mL Pneumo Ab Type 5* 0.1 >1.3 ug/mL Pneumo Ab Type 51 (7F)* 1.7 >1.3 ug/mL Pneumo Ab Type 54 (15B)* 6.7 >1.3 ug/mL Pneumo Ab Type 56 (18C)* 3.8 >1.3 ug/mL Pneumo Ab Type 57 (19A)* 2.8 >1.3 ug/mL Pneumo Ab Type 68 (9V)* 1.8 >1.3 ug/mL Pneumo Ab Type 70 (33F)* 2.3 >1.3 ug/mL *This test was developed and its performance characteristics determined by [employer]. It has not been cleared or approved by the U.S. Food and Drug Administration. FLAG Interpretation: A = Abnormal, H = High, L = Low -Haemophilus influenzae B Ig G Reviewed date:08/25/2024 07:50:18 AM Interpretation:Normal Performing Lab:[address] [id number], Phone - [phone], Director - Ney Notes/Report: Haemophilus influenzae B IgG >9.00 NOTE: An anti-Hib level of 0.15 ug/mL is generally accepted as the minimum level for protection. Optimal protection post-vaccination requires a level greater than 1.00 ug/mL. -Pneumococcal Ab (23 Serotyp e) Reviewed date:08/30/2024 08:36:47 AM Interpretation:Abnormal Performing Lab:[facility], [address] [place] [address], [facility], [place], [place] [id number], Phone - [phone], Director - Morales Notes/Report: Pneumo Ab Type 1* 0.6 >1.3 ug/mL Pneumo Ab Type 3* 0.4 >1.3 ug/mL Pneumo Ab Type 4* 3.2 >1.3 ug/mL Pneumo Ab Type 8* 13.6 >1.3 ug/mL Pneumo Ab Type 9 (9N)* 0.6 >1.3 ug/mL Pneumo Ab Type 12 (12F)* 1.1 >1.3 ug/mL Pneumo Ab Type 14* 0.8 >1.3 ug/mL Pneumo Ab Type 17 (17F)* 5.2 >1.3 ug/mL Pneumo Ab Type 19 (19F)* 1.8 >1.3 ug/mL Pneumo Ab Type 2* 18.0 >1.3 ug/mL Pneumo Ab Type 20* 33.8 >1.3 ug/mL Pneumo Ab Type 22 (22F)* 5.8 >1.3 ug/mL Pneumo Ab Type 23 (23F)* 3.4 >1.3 ug/mL Pneumo Ab Type 26 (6B)* 0.1 >1.3 ug/mL Pneumo Ab Type 34 (10A)* 1.0 >1.3 ug/mL Pneumo Ab Type 43 (11A)* 0.9 >1.3 ug/mL Pneumo Ab Type 5* 0.3 >1.3 ug/mL Pneumo Ab Type 51 (7F)* 2.2 >1.3 ug/mL Pneumo Ab Type 54 (15B)* 10.2 >1.3 ug/mL Pneumo Ab Type 56 (18C)* 5.9 >1.3 ug/mL Pneumo Ab Type 57 (19A)* 4.6 >1.3 ug/mL Pneumo Ab Type 68 (9V)* 2.3 >1.3 ug/mL Pneumo Ab Type 70 (33F)* 3.6 >1.3 ug/mL *This test was developed and its performance characteristics determined by [employer]. It has not been cleared or approved by the U.S. Food and Drug Administration. FLAG Interpretation: A = Abnormal, H = High, L = Low -Pneumococcal Ab (23 Serotyp e) Reviewed date:12/02/2024 07:52:06 AM Interpretation:Abnormal Performing Lab:[facility], [address], [address], [place], [place] [id number], Phone - [phone], [facility]: Pneumo Ab Type 1* 0.5 >1.3 ug/mL Pneumo Ab Type 3* 0.4 >1.3 ug/mL Pneumo Ab Type 4* 2.4 >1.3 ug/mL Pneumo Ab Type 8* 11.9 >1.3 ug/mL Pneumo Ab Type 9 (9N)* 0.3 >1.3 ug/mL Pneumo Ab Type 12 (12F)* 1.2 >1.3 ug/mL Pneumo Ab Type 14* 0.6 >1.3 ug/mL Pneumo Ab Type 17 (17F)* 5.0 >1.3 ug/mL Pneumo Ab Type 19 (19F)* 1.3 >1.3 ug/mL Pneumo Ab Type 2* 13.0 >1.3 ug/mL Pneumo Ab Type 20* 29.4 >1.3 ug/mL Pneumo Ab Type 22 (22F)* 4.6 >1.3 ug/mL Pneumo Ab Type 23 (23F)* 2.0 >1.3 ug/mL Pneumo Ab Type 26 (6B)* 0.1 >1.3 ug/mL Pneumo Ab Type 34 (10A)* 1.0 >1.3 ug/mL Pneumo Ab Type 43 (11A)* 0.7 >1.3 ug/mL Pneumo Ab Type 5* 0.2 >1.3 ug/mL Pneumo Ab Type 51 (7F)* 1.9 >1.3 ug/mL Pneumo Ab Type 54 (15B)* 9.9 >1.3 ug/mL Pneumo Ab Type 56 (18C)* 6.2 >1.3 ug/mL Pneumo Ab Type 57 (19A)* 2.9 >1.3 ug/mL Pneumo Ab Type 68 (9V)* 2.0 >1.3 ug/mL Pneumo Ab Type 70 (33F)* 3.0 >1.3 ug/mL *This test was developed and its performance characteristics determined by [employer]. It has not been cleared or approved by the U.S. Food and Drug Administration. FLAG Interpretation: A = Abnormal, H = High, L = Low Reason For Referral No Information Medications Medication SIG (Take, Route, Frequency, Duration) Notes Start Date End Date Status Montelukast Sodium 10 MG TAKE 1 TABLET B Y MOUTH EVERY DAY FOR 90 DAYS for 90 Not-Taking Singulair 10 MG 1 tablet Orally Once a day for 90 days Active Acetaminophen 500 MG 1 tablet as needed Orally every 6 hrs Active Fexofenadine HCl 60 MG 1 tablet Orally T wice a day Active Mucinex 600 MG 1 tablet as needed Orally every 12 hrs Active Cetirizine HCl 10 MG 1 tablet Orally Onc e a day Active Calcium 1200 4892-6934 MG-UNIT 1 tablet Orally Once a day Active Albuterol Sulfate HFA 108 (90 Base) MCG/ACT 2-4 puffs Inhalation every 4 hrs as needed for 30 days Active Estradiol 0.025 MG/24HR 1 patch to skin Transdermal Two times a Week Active AeroChamber MV - as directed for 30 days any brand is fine Active Metoprolol Succinate 25 MG 1 capsule Orally Once a day Active EPINEPHrine 0.3 MG/0.3ML as directed Inj ection as needed for 30 days Active Crestor 10 MG 1 tablet Orally Once a day Active SIT (Traditional) variable - see record per schedule subcutaneous per schedule for 999 days Active Synthroid 75 MCG 1 tablet in the morn ing on an empty stomach Orally Once a day Active Amoxicillin-Pot Clavulanate 875-125 MG 1 tablet Orally every 12 hrs for 14 days Active Levalbuterol Tartrate 45 MCG/ACT 2-4 puffs Inhalation every 4 hrs if needed for 30 days Not-Taking Flonase Allergy Relief 50 MCG/ACT 1 spray in each nostril Nasally Once a day Active EPINEPHrine 0.3 MG/0.3ML as directed Injection PRN for anaphylaxis for 30 days As needed 05/31/2024 Active Immunizations Vaccine Route Administration Date Status Comme nts NOC PedvaxHIB IM Intramuscular 06/28/2024 Administered NOC Pneumovax 23 IM Intramuscular 06/28/2024 Administered NOC Pneumovax 23 IM Intramuscular 10/27/2024 Administered NOC Prevnar 20 IM Intramuscular 09/02/2024 Administered Social History Tobacco Use: Social History Observation Description Date Details (start date - stop date) Never Smoker NA - NA Tobacco Control (Standard) Question Answer Notes Tobacco use: Nonsmoker Problems Problem Type SNOMED Code ICD Code Onset Dates Problem Status W/U Status Risk Notes Problem Wheezing (94387978) Wheezing (R06.2) Active confirmed Problem Chronic allergic conjunctivitis (17357775) Other chronic allergic conjunctivitis (H10.45) Active confirmed Problem Allergic rhinitis caused by pollen (disorder) (87393528) Allergic rhinitis due to pollen (J30.1) Active confirmed Problem Allergic rhinitis (74288043) Other allergic rhinitis (J30.89) Active confirmed Problem Chronic rhinitis (62046876) Chronic rhinitis (J31.0) Active confirmed Problem Chronic sinusitis (33388388) Chronic sinusitis, unspecified (J32.9) Active confirmed Problem Uncomplicated mild persistent asthma (889839661) Mild persistent asthma, uncomplicated (J45.30) Active confirmed Problem Uncomplicated moderate persistent asthma (388695434) Moderate persistent asthma, uncomplicated (J45.40) Active confirmed Problem Uncomplicated severe persistent asthma (502289326) Severe persistent asthma, uncomplicated (J45.50) Active confirmed Problem Allergic rhinitis caused by animal hair and dander (789431314530476) Allergic rhinitis due to animal (cat) (dog) hair and dander (J30.81) Active confirmed Problem Chronic sinusitis (57369858) Other chronic sinusitis (J32.8) Active confirmed Problem Ingestion dermatitis caused by food (470849073) Dermatitis due to ingested food (L27.2) Active confirmed Vital Signs Respiratory Rate 17 /min 12/02/2024 Oximetry 100 % 12/02/2024 Blood pressure diastolic 72 mm Hg 12/02/2024 Height 63 in 12/02/2024 Blood pressure systolic 133 mm Hg 12/02/2024 Weight 122.6 lbs 12/02/2024 BMI 21.72 kg/m2 12/02/2024 Encounters Encounter Location Date Provider Diagnosis [facility] [address] [place] [address] 03/29/2025 Perry Olivera Allergic rhinitis du e to pollen J30.1 ; Allergic rhinitis due to animal (cat) (dog) hair and dander J30.81 ; Other allergic rhinitis J30.89 and Other chronic allergic conjunctivitis H10.45 [facility] [address] [place] [address] 05/13/2024 Margoth Young Allergic rhinitis du e to pollen J30.1 ; Other allergic rhinitis J30.89 ; Chronic sinusitis, unspecified J32.9 ; Other chronic allergic conjunctivitis H10.45 ; Wheezing R06.2 and Dermatitis due to ingested food L27.2 [facility] [address] [place] [phone] 06/24/2024 Margoth Young Allergic rhinitis du e to pollen J30.1 ; Other allergic rhinitis J30.89 ; Chronic sinusitis, unspecified J32.9 ; Other chronic allergic conjunctivitis H10.45 ; Wheezing R06.2 and Dermatitis due to ingested food L27.2 [facility] [address] [place] [phone] 06/28/2024 Perry Olivera Encounter for immunization Z23 ; Encounter for antibody response examination Z01.84 and Other chronic sinusitis J32.8 [facility] [address] [place] [phone] 06/29/2024 Perry Olivera Allergic rhinitis du e to pollen J30.1 ; Allergic rhinitis due to animal (cat) (dog) hair and dander J30.81 ; Other allergic rhinitis J30.89 and Other chronic allergic conjunctivitis H10.45 [facility] [address] [place] [phone] 07/06/2024 Perry Olivera Allergic rhinitis du e to pollen J30.1 ; Allergic rhinitis due to animal (cat) (dog) hair and dander J30.81 ; Other allergic rhinitis J30.89 and Other chronic allergic conjunctivitis H10.45 [facility] [address] [place] [phone] 07/13/2024 Perry Olivera Allergic rhinitis du e to pollen J30.1 ; Allergic rhinitis due to animal (cat) (dog) hair and dander J30.81 ; Other allergic rhinitis J30.89 and Other chronic allergic conjunctivitis H10.45 [facility] [address] [place] [phone] 07/20/2024 Perry Olivera Allergic rhinitis du e to pollen J30.1 ; Allergic rhinitis due to animal (cat) (dog) hair and dander J30.81 ; Other allergic rhinitis J30.89 and Other chronic allergic conjunctivitis H10.45 [facility] [address] [place] [phone] 07/27/2024 Perry Olivera Allergic rhinitis du e to pollen J30.1 ; Allergic rhinitis due to animal (cat) (dog) hair and dander J30.81 ; Other allergic rhinitis J30.89 and Other chronic allergic conjunctivitis H10.45 [facility] [address] [place] [phone] 08/03/2024 Perryjaleesa Olivera Allergic rhinitis du e to pollen J30.1 ; Allergic rhinitis due to animal (cat) (dog) hair and dander J30.81 ; Other allergic rhinitis J30.89 and Other chronic allergic conjunctivitis H10.45 [facility] [address] [place] [phone] 08/10/2024 Perry Olivera Allergic rhinitis du e to pollen J30.1 ; Allergic rhinitis due to animal (cat) (dog) hair and dander J30.81 ; Other allergic rhinitis J30.89 and Other chronic allergic conjunctivitis H10.45 [facility] [address] [place] [phone] 08/19/2024 Margoth Christensen Allergic rhinitis du e to pollen J30.1 ; Other allergic rhinitis J30.89 ; Chronic sinusitis, unspecified J32.9 ; Other chronic allergic conjunctivitis H10.45 ; Wheezing R06.2 and Dermatitis due to ingested food L27.2 [facility] [address] [place] [phone] 08/24/2024 Perry Olivera Allergic rhinitis du e to pollen J30.1 ; Allergic rhinitis due to animal (cat) (dog) hair and dander J30.81 ; Other allergic rhinitis J30.89 and Other chronic allergic conjunctivitis H10.45 [facility] [address] [place] [phone] 08/31/2024 Perry Olivera Allergic rhinitis du e to pollen J30.1 ; Allergic rhinitis due to animal (cat) (dog) hair and dander J30.81 ; Other allergic rhinitis J30.89 and Other chronic allergic conjunctivitis H10.45 [facility] [address] [place] [phone] 09/02/2024 Perry Olivera Encounter for immunization Z23 and Encounter for antibody response examination Z01.84 [facility] [address] [place] [phone] 09/07/2024 Perry Olivera Allergic rhinitis du e to pollen J30.1 ; Allergic rhinitis due to animal (cat) (dog) hair and dander J30.81 ; Other allergic rhinitis J30.89 and Other chronic allergic conjunctivitis H10.45 [facility] [address] [place] [phone] 09/14/2024 Perry Olivera Allergic rhinitis du e to pollen J30.1 ; Allergic rhinitis due to animal (cat) (dog) hair and dander J30.81 ; Other allergic rhinitis J30.89 and Other chronic allergic conjunctivitis H10.45 [facility] [address] [place] [phone] 09/21/2024 Perry Olivera Allergic rhinitis du e to pollen J30.1 ; Allergic rhinitis due to animal (cat) (dog) hair and dander J30.81 ; Other allergic rhinitis J30.89 and Other chronic allergic conjunctivitis H10.45 [facility] [address] [place] [phone] 09/28/2024 Perry Olivera Allergic rhinitis du e to pollen J30.1 ; Allergic rhinitis due to animal (cat) (dog) hair and dander J30.81 ; Other allergic rhinitis J30.89 and Other chronic allergic conjunctivitis H10.45 [facility] [address] [place] [phone] 10/11/2024 Perry Olivera Allergic rhinitis du e to pollen J30.1 ; Allergic rhinitis due to animal (cat) (dog) hair and dander J30.81 ; Other allergic rhinitis J30.89 and Other chronic allergic conjunctivitis H10.45 [facility] [address] [place] [phone] 10/18/2024 Perry Olivera Allergic rhinitis du e to pollen J30.1 ; Allergic rhinitis due to animal (cat) (dog) hair and dander J30.81 ; Other allergic rhinitis J30.89 and Other chronic allergic conjunctivitis H10.45 [facility] [address] [place] [phone] 10/26/2024 Perry Olivera Allergic rhinitis du e to pollen J30.1 ; Allergic rhinitis due to animal (cat) (dog) hair and dander J30.81 ; Other allergic rhinitis J30.89 and Other chronic allergic conjunctivitis H10.[address] [phone] 10/27/2024 Perry Olivera Encounter for immunization Z23 ; Encounter for antibody response examination Z01.84 and Other chronic sinusitis J32.8 [facility] [address] [place] [phone] 11/02/2024 Perry Olivera Allergic rhinitis du e to pollen J30.1 ; Allergic rhinitis due to animal (cat) (dog) hair and dander J30.81 ; Other allergic rhinitis J30.89 and Other chronic allergic conjunctivitis H10.45 [facility] [address] [place] [phone] 11/09/2024 Perry Olivera Allergic rhinitis du e to pollen J30.1 ; Allergic rhinitis due to animal (cat) (dog) hair and dander J30.81 ; Other allergic rhinitis J30.89 and Other chronic allergic conjunctivitis H10.45 [facility] [address] [place] [phone] 11/16/2024 Perry Olivera Allergic rhinitis du e to pollen J30.1 ; Allergic rhinitis due to animal (cat) (dog) hair and dander J30.81 ; Other allergic rhinitis J30.89 and Other chronic allergic conjunctivitis H10.45 [facility] [address] [place] [phone] 12/02/2024 Margoth Christensen Allergic rhinitis du e to pollen J30.1 ; Chronic sinusitis, unspecified J32.9 ; Other allergic rhinitis J30.89 ; Other chronic allergic conjunctivitis H10.45 ; Wheezing R06.2 and Dermatitis due to ingested food L27.2 [facility] [address] [place] [phone] 12/14/2024 Perry Olivera Allergic rhinitis du e to pollen J30.1 ; Allergic rhinitis due to animal (cat) (dog) hair and dander J30.81 ; Other allergic rhinitis J30.89 and Other chronic allergic conjunctivitis H10.45 [facility] [address] [place] [phone] 12/21/2024 Perry Olivera Allergic rhinitis du e to pollen J30.1 ; Allergic rhinitis due to animal (cat) (dog) hair and dander J30.81 ; Other allergic rhinitis J30.89 and Other chronic allergic conjunctivitis H10.45 [facility] [address] [place] [phone] 12/28/2024 Perry Olivera Allergic rhinitis du e to pollen J30.1 ; Allergic rhinitis due to animal (cat) (dog) hair and dander J30.81 ; Other allergic rhinitis J30.89 and Other chronic allergic conjunctivitis H10.45 [facility] [address] [place] [phone] 01/04/2025 Perry Olivera Allergic rhinitis du e to pollen J30.1 ; Allergic rhinitis due to animal (cat) (dog) hair and dander J30.81 ; Other allergic rhinitis J30.89 and Other chronic allergic conjunctivitis H10.45 [facility] [address] [place] [phone] 01/10/2025 Perry Olivera Allergic rhinitis du e to pollen J30.1 ; Allergic rhinitis due to animal (cat) (dog) hair and dander J30.81 ; Other allergic rhinitis J30.89 and Other chronic allergic conjunctivitis H10.45 [facility] [address] [place] [phone] 01/17/2025 Perry Olivera Allergic rhinitis du e to pollen J30.1 ; Allergic rhinitis due to animal (cat) (dog) hair and dander J30.81 ; Other allergic rhinitis J30.89 and Other chronic allergic conjunctivitis H10.45 [facility] [address] [place] [phone] 01/26/2025 Perry Jarod Allergic rhinitis du e to pollen J30.1 ; Allergic rhinitis due to animal (cat) (dog) hair and dander J30.81 ; Other allergic rhinitis J30.89 and Other chronic allergic conjunctivitis H10.45 [facility] [address] [place] [phone] 02/03/2025 Perry Olivera Allergic rhinitis du e to pollen J30.1 ; Allergic rhinitis due to animal (cat) (dog) hair and dander J30.81 ; Other allergic rhinitis J30.89 and Other chronic allergic conjunctivitis H10.45 [facility] [address] [place] [phone] 02/08/2025 Perry Olivera Allergic rhinitis du e to pollen J30.1 ; Allergic rhinitis due to animal (cat) (dog) hair and dander J30.81 ; Other allergic rhinitis J30.89 and Other chronic allergic conjunctivitis H10.45 [facility] [address] [place] [phone] 02/15/2025 Perry Olivera Allergic rhinitis du e to pollen J30.1 ; Allergic rhinitis due to animal (cat) (dog) hair and dander J30.81 ; Other allergic rhinitis J30.89 and Other chronic allergic conjunctivitis H10.45 [facility] [address] [place] [phone] 02/22/2025 Perry Olivera Allergic rhinitis du e to pollen J30.1 ; Allergic rhinitis due to animal (cat) (dog) hair and dander J30.81 ; Other allergic rhinitis J30.89 and Other chronic allergic conjunctivitis H10.45 [facility] [address] [place] [phone] 03/03/2025 Perry Olivera Allergic rhinitis du e to pollen J30.1 ; Allergic rhinitis due to animal (cat) (dog) hair and dander J30.81 ; Other allergic rhinitis J30.89 and Other chronic allergic conjunctivitis H10.45 [facility] [address] [place] [address] 03/08/2025 Perry Olivera Allergic rhinitis du e to pollen J30.1 ; Allergic rhinitis due to animal (cat) (dog) hair and dander J30.81 ; Other allergic rhinitis J30.89 and Other chronic allergic conjunctivitis H10.45 [facility] [address] [place] [address] 03/15/2025 Perry Olivera Allergic rhinitis du e to pollen J30.1 ; Allergic rhinitis due to animal (cat) (dog) hair and dander J30.81 ; Other allergic rhinitis J30.89 and Other chronic allergic conjunctivitis H10.45 [facility] [address] [place] [phone] 03/21/2025 Perry Olivera Allergic rhinitis du e to pollen J30.1 ; Allergic rhinitis due to animal (cat) (dog) hair and dander J30.81 ; Other allergic rhinitis J30.89 and Other chronic allergic conjunctivitis H10.45 [facility] [address] [place] [address] 05/13/2024 Margoth Young [facility] [address] [place] [address] 05/19/2024 Margoth Young [facility] [address] [place] [address] 05/31/2024 Margoth Young [facility] [address] [place] [address] 05/31/2024 Margoth Young [facility] [address] [place] [address] 06/22/2024 Margoth Young [facility] [address] [place] [address] 08/30/2024 Margoth Young Chronic sinusitis, unspecified J32.9 [facility] [address] [place] [address] 10/04/2024 Margoth Christensen [facility] [address] [place] [phone] 10/26/[address] [place] [address] 10/30/2024 [facility] [address] [place] [phone] 11/03/2024 Margoth Christensen Allergic rhinitis du e to pollen J30.[address] [place] [address] 11/24/2024 Margoth Christensen [facility] [address] [place] [phone] 12/14/2024 Margoth Christensen Chronic sinusitis, unspecified J32.[address] [place] [address] 01/03/2025 Margoth Christensen [facility] [address] [place] [phone] 01/04/2025 Margoth Christensen [address] [place] [address] 01/26/2025 Margoth Christensen Assessments Encounter Date Diagnosis (ICD Code) Assessment Notes Treatment Notes Treatment Clinical Notes Section Notes 05/13/2024 Allergic rhinitis due to pollen (ICD-10 - J30.1) Given the history and symptoms, skin testing was performed to common aeroallergens to determine atopic status. Marissa clearly suffers from atopic disease based upon our skin testing and clinical history. Accordingly, we have introduced a new, aggressive medication regimen, discussed nasal washes and allergy-specific avoidance measures. We also discussed adjunctive therapies including subcutaneous, specific allergen immunotherapy as relates to the treatment and prevention of atopic disease. She is currently considering the risks, benefits and alternatives to this care. Risks: bleeding, infection, allergic reaction, anaphylaxis; Benefits: reduced need for medications, improved symptoms, disease modification. Alternatives: watch/wait, change medication regimen, improve allergy avoidance measures. Follow-up in 1 month for interval evaluation and management 05/13/2024 Other allergic rhinitis (ICD-10 - J30.89) Follow allergen avoidance, meds and consider SCIT as an adjunctive treatment to current regimen 06/24/2024 Allergic rhinitis due to pollen (ICD-10 - J30.1) Marissa clearly suffers from atopic disease based upon our skin testing and clinical history. Accordingly, we have introduced a new, aggressive medication regimen, discussed nasal washes and allergy-specific avoidance measures. After discussing subcutaneous, specific allergen immunotherapy as relates to the treatment and prevention of atopic disease and after considering the risks, benefits and alternatives to this treatment, we started today. The procedure was tolerated without large local or systemic symptoms concerning for anaphylaxis. She will carry AIE for at least 2 hours after today's procedure.Return in 1 week for dosing 06/24/2024 Other allergic rhinitis (ICD-10 - J30.89) Follow allergen avoidance, meds and SCIT as an adjunctive treatment to current regimen 06/28/2024 Encounter for immunization (ICD-10 - Z23) 06/28/2024 Encounter for antibody response examination (ICD-10 - Z01.84) 06/29/2024 Allergic rhinitis due to pollen (ICD-10 - J30.1) 07/06/2024 Allergic rhinitis due to pollen (ICD-10 - J30.1) 07/13/2024 Allergic rhinitis due to pollen (ICD-10 - J30.1) 07/20/2024 Allergic rhinitis due to pollen (ICD-10 - J30.1) 07/27/2024 Allergic rhinitis due to pollen (ICD-10 - J30.1) 08/03/2024 Allergic rhinitis due to pollen (ICD-10 - J30.1) 08/10/2024 Allergic rhinitis due to pollen (ICD-10 - J30.1) 08/19/2024 Allergic rhinitis due to pollen (ICD-10 - J30.1) Marissa clearly suffers from atopic disease based upon our skin testing and clinical history. Accordingly, we have introduced a new, aggressive medication regimen, discussed nasal washes and allergy-specific avoidance measures. She continues weekly ttiration. The procedure was tolerated without large local or systemic symptoms concerning for anaphylaxis. She will carry AIE for at least 2 hours after today's procedure.Return in 1 week for dosing 08/19/2024 Other allergic rhinitis (ICD-10 - J30.89) Follow allergen avoidance, meds and SCIT as an adjunctive treatment to current regimen 08/24/2024 Allergic rhinitis due to pollen (ICD-10 - J30.1) 08/30/2024 Chronic sinusitis, unspecified (ICD-10 - J32.9) 08/31/2024 Allergic rhinitis due to pollen (ICD-10 - J30.1) 09/07/2024 Allergic rhinitis due to pollen (ICD-10 - J30.1) 09/14/2024 Allergic rhinitis due to pollen (ICD-10 - J30.1) 09/21/2024 Allergic rhinitis due to pollen (ICD-10 - J30.1) 09/28/2024 Allergic rhinitis due to pollen (ICD-10 - J30.1) 10/11/2024 Allergic rhinitis due to pollen (ICD-10 - J30.1) 10/18/2024 Allergic rhinitis due to pollen (ICD-10 - J30.1) 09/02/2024 Encounter for immunization (ICD-10 - Z23) 09/02/2024 Encounter for antibody response examination (ICD-10 - Z01.84) 10/26/2024 Allergic rhinitis due to pollen (ICD-10 - J30.1) 10/27/2024 Encounter for immunization (ICD-10 - Z23) 10/27/2024 Encounter for antibody response examination (ICD-10 - Z01.84) 11/02/2024 Allergic rhinitis due to pollen (ICD-10 - J30.1) 11/03/2024 Allergic rhinitis due to pollen (ICD-10 - J30.1) 11/09/2024 Allergic rhinitis due to pollen (ICD-10 - J30.1) 11/16/2024 Allergic rhinitis due to pollen (ICD-10 - J30.1) 12/02/2024 Allergic rhinitis due to pollen (ICD-10 - J30.1) Marissa clearly suffers from atopic disease based upon our skin testing and clinical history. Accordingly, we have introduced a new, aggressive medication regimen, discussed nasal washes and allergy-specific avoidance measures. Return in 1 week for dosing when feeling better 12/02/2024 Chronic sinusitis, unspecified (ICD-10 - J32.9) Chronic sinus symptoms Frequency of infection [facility] criteria for modified PIDD work-up. Will plan on boosters/Vitamin D supplementation based on results -She has inadequate Hib and Pneumococcal protection (2 of 23 protected).She received the following vaccines: Pneumvoax 06/2024 (14 of 23) Prevnar 08/2024 (13 of 23) Pneumovax 10/2024 (13 of 23 protected) -Recommend recheck of immune labs in 6 months, given her frequency of infection I have low threshold to provide another booster -Start Augmentin 875 BID x 14-28 days. See ENT and consider CT -Vitamin D normal at 50 but on supplementation 12/14/2024 Allergic rhinitis due to pollen (ICD-10 - J30.1) 12/21/2024 Allergic rhinitis due to pollen (ICD-10 - J30.1) 12/28/2024 Allergic rhinitis due to pollen (ICD-10 - J30.1) 01/04/2025 Allergic rhinitis due to pollen (ICD-10 - J30.1) 01/10/2025 Allergic rhinitis due to pollen (ICD-10 - J30.1) 01/17/2025 Allergic rhinitis due to pollen (ICD-10 - J30.1) 01/26/2025 Allergic rhinitis due to pollen (ICD-10 - J30.1) 02/03/2025 Allergic rhinitis due to pollen (ICD-10 - J30.1) 12/14/2024 Chronic sinusitis, unspecified (ICD-10 - J32.9) 02/08/2025 Allergic rhinitis due to pollen (ICD-10 - J30.1) 02/15/2025 Allergic rhinitis due to pollen (ICD-10 - J30.1) 02/22/2025 Allergic rhinitis due to pollen (ICD-10 - J30.1) 03/03/2025 Allergic rhinitis due to pollen (ICD-10 - J30.1) 03/08/2025 Allergic rhinitis due to pollen (ICD-10 - J30.1) 03/15/2025 Allergic rhinitis due to pollen (ICD-10 - J30.1) 03/21/2025 Allergic rhinitis due to pollen (ICD-10 - J30.1) 03/29/2025 Allergic rhinitis due to pollen (ICD-10 - J30.1) 03/29/2025 Allergic rhinitis due to animal (cat) (dog) hair and dander (ICD-10 - J30.81) 03/21/2025 Allergic rhinitis due to animal (cat) (dog) hair and dander (ICD-10 - J30.81) 03/15/2025 Allergic rhinitis due to animal (cat) (dog) hair and dander (ICD-10 - J30.81) 03/08/2025 Allergic rhinitis due to animal (cat) (dog) hair and dander (ICD-10 - J30.81) 03/03/2025 Allergic rhinitis due to animal (cat) (dog) hair and dander (ICD-10 - J30.81) 02/22/2025 Allergic rhinitis due to animal (cat) (dog) hair and dander (ICD-10 - J30.81) 02/15/2025 Allergic rhinitis due to animal (cat) (dog) hair and dander (ICD-10 - J30.81) 02/08/2025 Allergic rhinitis due to animal (cat) (dog) hair and dander (ICD-10 - J30.81) 02/03/2025 Allergic rhinitis due to animal (cat) (dog) hair and dander (ICD-10 - J30.81) 01/26/2025 Allergic rhinitis due to animal (cat) (dog) hair and dander (ICD-10 - J30.81) 01/17/2025 Allergic rhinitis due to animal (cat) (dog) hair and dander (ICD-10 - J30.81) 01/10/2025 Allergic rhinitis due to animal (cat) (dog) hair and dander (ICD-10 - J30.81) 01/04/2025 Allergic rhinitis due to animal (cat) (dog) hair and dander (ICD-10 - J30.81) 12/28/2024 Allergic rhinitis due to animal (cat) (dog) hair and dander (ICD-10 - J30.81) 12/21/2024 Allergic rhinitis due to animal (cat) (dog) hair and dander (ICD-10 - J30.81) 12/14/2024 Allergic rhinitis due to animal (cat) (dog) hair and dander (ICD-10 - J30.81) 12/02/2024 Other allergic rhinitis (ICD-10 - J30.89) Follow allergen avoidance, meds and SCIT as an adjunctive treatment to current regimen 11/16/2024 Allergic rhinitis due to animal (cat) (dog) hair and dander (ICD-10 - J30.81) 11/09/2024 Allergic rhinitis due to animal (cat) (dog) hair and dander (ICD-10 - J30.81) 11/02/2024 Allergic rhinitis due to animal (cat) (dog) hair and dander (ICD-10 - J30.81) 10/27/2024 Other chronic sinusitis (ICD-10 - J32.8) 10/26/2024 Allergic rhinitis due to animal (cat) (dog) hair and dander (ICD-10 - J30.81) 10/18/2024 Allergic rhinitis due to animal (cat) (dog) hair and dander (ICD-10 - J30.81) 10/11/2024 Allergic rhinitis due to animal (cat) (dog) hair and dander (ICD-10 - J30.81) 09/28/2024 Allergic rhinitis due to animal (cat) (dog) hair and dander (ICD-10 - J30.81) 09/21/2024 Allergic rhinitis due to animal (cat) (dog) hair and dander (ICD-10 - J30.81) 09/14/2024 Allergic rhinitis due to animal (cat) (dog) hair and dander (ICD-10 - J30.81) 09/07/2024 Allergic rhinitis due to animal (cat) (dog) hair and dander (ICD-10 - J30.81) 08/31/2024 Allergic rhinitis due to animal (cat) (dog) hair and dander (ICD-10 - J30.81) 08/24/2024 Allergic rhinitis due to animal (cat) (dog) hair and dander (ICD-10 - J30.81) 08/19/2024 Chronic sinusitis, unspecified (ICD-10 - J32.9) Frequency of infection [facility] criteria for modified PIDD work-up. Will plan on boosters/Vitamin D supplementation based on results -She has inadequate Hib and Pneumococcal protection (2 of 23 protected).She received Hib and Pneumovax but is now due for recheck- head to lab now -Vitamin D normal at 50 but on supplementation 08/10/2024 Allergic rhinitis due to animal (cat) (dog) hair and dander (ICD-10 - J30.81) 08/03/2024 Allergic rhinitis due to animal (cat) (dog) hair and dander (ICD-10 - J30.81) 07/27/2024 Allergic rhinitis due to animal (cat) (dog) hair and dander (ICD-10 - J30.81) 07/20/2024 Allergic rhinitis due to animal (cat) (dog) hair and dander (ICD-10 - J30.81) 07/13/2024 Allergic rhinitis due to animal (cat) (dog) hair and dander (ICD-10 - J30.81) 07/06/2024 Allergic rhinitis due to animal (cat) (dog) hair and dander (ICD-10 - J30.81) 06/29/2024 Allergic rhinitis due to animal (cat) (dog) hair and dander (ICD-10 - J30.81) 06/28/2024 Other chronic sinusitis (ICD-10 - J32.8) 06/24/2024 Chronic sinusitis, unspecified (ICD-10 - J32.9) Frequency of infection [facility] criteria for modified PIDD work-up. Will plan on boosters/Vitamin D supplementation based on results -She has inadequate Hib and Pneumococcal protection (2 of 23 protected).Recomme nd Hib and Pneumovax with recheck of titers in 4-6 ees -Vitamin D normal at 50 but on supplementation 05/13/2024 Chronic sinusitis, unspecified (ICD-10 - J32.9) Frequency of infection [facility] criteria for modified PIDD work-up. Will plan on boosters/Vitamin D supplementation based on results -resume INS and saline rinse daily 05/13/2024 Other chronic allergic conjunctivitis (ICD-10 - H10.45) Given ocular signs and symptoms I encouraged allergy avoidance measures and meds as above. If symptoms persist, consider adding additional medications including intraocular antihistamine/mast cell stabilizer, PRN and consider SCIT as an adjunctive measure 06/24/2024 Other chronic allergic conjunctivitis (ICD-10 - H10.45) Given ocular signs and symptoms I encouraged allergy avoidance measures and meds as above. If symptoms persist, consider adding additional medications including intraocular antihistamine/mast cell stabilizer, PRN and consider SCIT as an adjunctive measure 06/29/2024 Other allergic rhinitis (ICD-10 - J30.89) 07/06/2024 Other allergic rhinitis (ICD-10 - J30.89) 07/13/2024 Other allergic rhinitis (ICD-10 - J30.89) 07/20/2024 Other allergic rhinitis (ICD-10 - J30.89) 07/27/2024 Other allergic rhinitis (ICD-10 - J30.89) 08/03/2024 Other allergic rhinitis (ICD-10 - J30.89) 08/10/2024 Other allergic rhinitis (ICD-10 - J30.89) 08/24/2024 Other allergic rhinitis (ICD-10 - J30.89) 08/19/2024 Other chronic allergic conjunctivitis (ICD-10 - H10.45) Given ocular signs and symptoms I encouraged allergy avoidance measures and meds as above. If symptoms persist, consider adding additional medications including intraocular antihistamine/mast cell stabilizer, PRN and SCIT as an adjunctive measure 08/31/2024 Other allergic rhinitis (ICD-10 - J30.89) 09/07/2024 Other allergic rhinitis (ICD-10 - J30.89) 09/14/2024 Other allergic rhinitis (ICD-10 - J30.89) 09/21/2024 Other allergic rhinitis (ICD-10 - J30.89) 09/28/2024 Other allergic rhinitis (ICD-10 - J30.89) 10/11/2024 Other allergic rhinitis (ICD-10 - J30.89) 10/18/2024 Other allergic rhinitis (ICD-10 - J30.89) 10/26/2024 Other allergic rhinitis (ICD-10 - J30.89) 11/02/2024 Other allergic rhinitis (ICD-10 - J30.89) 11/09/2024 Other allergic rhinitis (ICD-10 - J30.89) 11/16/2024 Other allergic rhinitis (ICD-10 - J30.89) 12/14/2024 Other allergic rhinitis (ICD-10 - J30.89) 12/02/2024 Other chronic allergic conjunctivitis (ICD-10 - H10.45) Given ocular signs and symptoms I encouraged allergy avoidance measures and meds as above. If symptoms persist, consider adding additional medications including intraocular antihistamine/mast cell stabilizer, PRN and SCIT as an adjunctive measure 12/21/2024 Other allergic rhinitis (ICD-10 - J30.89) 12/28/2024 Other allergic rhinitis (ICD-10 - J30.89) 01/04/2025 Other allergic rhinitis (ICD-10 - J30.89) 01/10/2025 Other allergic rhinitis (ICD-10 - J30.89) 01/17/2025 Other allergic rhinitis (ICD-10 - J30.89) 01/26/2025 Other allergic rhinitis (ICD-10 - J30.89) 02/03/2025 Other allergic rhinitis (ICD-10 - J30.89) 02/08/2025 Other allergic rhinitis (ICD-10 - J30.89) 02/15/2025 Other allergic rhinitis (ICD-10 - J30.89) 02/22/2025 Other allergic rhinitis (ICD-10 - J30.89) 03/03/2025 Other allergic rhinitis (ICD-10 - J30.89) 03/08/2025 Other allergic rhinitis (ICD-10 - J30.89) 03/15/2025 Other allergic rhinitis (ICD-10 - J30.89) 03/21/2025 Other allergic rhinitis (ICD-10 - J30.89) 03/29/2025 Other allergic rhinitis (ICD-10 - J30.89) 03/29/2025 Other chronic allergic conjunctivitis (ICD-10 - H10.45) 03/21/2025 Other chronic allergic conjunctivitis (ICD-10 - H10.45) 03/15/2025 Other chronic allergic conjunctivitis (ICD-10 - H10.45) 03/08/2025 Other chronic allergic conjunctivitis (ICD-10 - H10.45) 03/03/2025 Other chronic allergic conjunctivitis (ICD-10 - H10.45) 02/22/2025 Other chronic allergic conjunctivitis (ICD-10 - H10.45) 02/15/2025 Other chronic allergic conjunctivitis (ICD-10 - H10.45) 02/08/2025 Other chronic allergic conjunctivitis (ICD-10 - H10.45) 12/21/2024 Other chronic allergic conjunctivitis (ICD-10 - H10.45) 02/03/2025 Other chronic allergic conjunctivitis (ICD-10 - H10.45) 01/26/2025 Other chronic allergic conjunctivitis (ICD-10 - H10.45) 01/17/2025 Other chronic allergic conjunctivitis (ICD-10 - H10.45) 01/10/2025 Other chronic allergic conjunctivitis (ICD-10 - H10.45) 01/04/2025 Other chronic allergic conjunctivitis (ICD-10 - H10.45) 12/28/2024 Other chronic allergic conjunctivitis (ICD-10 - H10.45) 12/14/2024 Other chronic allergic conjunctivitis (ICD-10 - H10.45) 12/02/2024 Wheezing (ICD-10 - R06.2) Seasonal wheezing in the setting of infections -spirometry last visit performed suggestive of restriction but TLC not measured. Post-BD test not clearly improved -continue Singulair and BUBBA to use - closely monitor use. Consider controller 11/16/2024 Other chronic allergic conjunctivitis (ICD-10 - H10.45) 11/09/2024 Other chronic allergic conjunctivitis (ICD-10 - H10.45) 09/07/2024 Other chronic allergic conjunctivitis (ICD-10 - H10.45) 11/02/2024 Other chronic allergic conjunctivitis (ICD-10 - H10.45) 10/26/2024 Other chronic allergic conjunctivitis (ICD-10 - H10.45) 10/18/2024 Other chronic allergic conjunctivitis (ICD-10 - H10.45) 10/11/2024 Other chronic allergic conjunctivitis (ICD-10 - H10.45) 09/28/2024 Other chronic allergic conjunctivitis (ICD-10 - H10.45) 09/21/2024 Other chronic allergic conjunctivitis (ICD-10 - H10.45) 09/14/2024 Other chronic allergic conjunctivitis (ICD-10 - H10.45) 08/31/2024 Other chronic allergic conjunctivitis (ICD-10 - H10.45) 08/24/2024 Other chronic allergic conjunctivitis (ICD-10 - H10.45) 08/19/2024 Wheezing (ICD-10 - R06.2) Seasonal wheezing in the setting of infections -spirometry last visit performed suggestive of restriction but TLC not measured. Post-BD test not clearly improved -will have her resume Singulair and refill BUBBA to use - closely monitor use. Consder controller 08/10/2024 Other chronic allergic conjunctivitis (ICD-10 - H10.45) 08/03/2024 Other chronic allergic conjunctivitis (ICD-10 - H10.45) 07/27/2024 Other chronic allergic conjunctivitis (ICD-10 - H10.45) 07/20/2024 Other chronic allergic conjunctivitis (ICD-10 - H10.45) 07/13/2024 Other chronic allergic conjunctivitis (ICD-10 - H10.45) 07/06/2024 Other chronic allergic conjunctivitis (ICD-10 - H10.45) 06/24/2024 Wheezing (ICD-10 - R06.2) Seasonal wheezing in the setting of infections -spirometry last visit performed suggestive of restriction but TLC not measured. Post-BD test not clearly improved -will have her resume Singulair and refill BUBBA to use - closely monitor use. Consder controller 05/13/2024 Wheezing (ICD-10 - R06.2) Seasonal wheezing in the setting of infections -spirometry today performed suggestive of restriction but TLC not measured. Post-BD test not clearly improved -will have her resume Singulair and refill BUBBA to use - closely monitor use. 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 Not surprisingly, he/she had multiple positive skin tests to pollens on past skin testing. The vast majority of OAS never evolves into classic food allergy. As in his/her case, the processed and/or heated forms of these foods can be eaten without adverse reaction. There are numerous case reports of OAS symptoms improving in patients undergoing allergen immunotherapy to the cross-reactive pollens. 05/13/2024 Dermatitis due to ingested food (ICD-10 - L27.2) This patient's oropharyngeal symptoms from certain fresh fruits and nuts is consistent with oral allergy syndrome (OAS), a mild form of IgE-mediated allergy due to cross-reactivity between pollens and unstable food proteins on fresh produce and nuts. Not surprisingly, he/she had multiple positive skin tests to pollens on past skin testing. The vast majority of OAS never evolves into classic food allergy. As in his/her case, the processed and/or heated forms of these foods can be eaten without adverse reaction. There are numerous case reports of OAS symptoms improving in patients undergoing allergen immunotherapy to the cross-reactive pollens. 08/19/2024 Dermatitis due to ingested food (ICD-10 - L27.2) This patient's oropharyngeal symptoms from certain fresh fruits and nuts is consistent with oral allergy syndrome (OAS), a mild form of IgE-mediated allergy due to cross-reactivity between pollens and unstable food proteins on fresh produce and nuts. Not surprisingly, he/she had multiple positive skin tests to pollens on past skin testing. The vast majority of OAS never evolves into classic food allergy. As in his/her case, the processed and/or heated forms of these foods can be eaten without adverse reaction. There are numerous case reports of OAS symptoms improving in patients undergoing allergen immunotherapy to the cross-reactive pollens. 12/02/2024 Dermatitis due to ingested food (ICD-10 - L27.2) This patient's oropharyngeal symptoms from certain fresh fruits and nuts is consistent with oral allergy syndrome (OAS), a mild form of IgE-mediated allergy due to cross-reactivity between pollens and unstable food proteins on fresh produce and nuts. Not surprisingly, he/she had multiple positive skin tests to pollens on past skin testing. The vast majority of OAS never evolves into classic food allergy. As in his/her case, the processed and/or heated forms of these foods can be eaten without adverse reaction. There are numerous case reports of OAS symptoms improving in patients undergoing allergen immunotherapy to the cross-reactive pollens. 02/03/2025 Other 05/13/2024 Other 06/24/2024 Other 08/19/2024 Other 12/02/2024 Other Plan Of Treatment Next Appt Details Provider Name:Perry Olivera , 04/05/2025 04:40:00 PM, [address], [address], Provider Name:Perry Olivera , 04/12/2025 08:00:00 AM, [address] [facility], [address], [place], [address], Provider Name:Perry Olivera , 04/19/2025 03:00:00 PM, [address] [facility], [address], [place], [address], Provider Name:Margoth Christensen , 06/09/2025 04:15:00 PM, [address] [facility], [address], [place], [address], Insurance Providers Payer Name Payer Address Payer Phone Subscriber Number Group Number Insured Name Patient Relationship to Insured Coverage Start Date Coverage End Date [facility] [address] [place] [address] [id number] Marissa Barbosa Self - patient is the insured 4 Medical (General) History Medical History History ICD Code Osteoporosis Hypertension Hypothyroidism Skin Cancer Coronary blockage Surgical History Surgery Date(Month/Year) [place] teeth removal 1977 laparoscopy 1985 Hernia repair 1994- Kidney stone removal 1990 hysterectomy 2008 Plantar Fascitis 2010 Nasal Surgery 2012 right lithotripsy 2015
--- OUTSIDE RECORDS SUMMARY | 2025-03-29 10:26 | XMS_ITS | Data Portability ---
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 Plan of Treatment Reminders Order Date Submit Date Provider Last Modified By Organization Details Last Modified Time Details Appointments None recorded. Lab None recorded. Referral None recorded. Procedures None recorded. Surgeries None recorded. Imaging audiogram, comprehensi ve 2022 023 [email or web address] Not available 3 10:49:46 acoustic immitance 2022 023 [email or web address] Not available 3 10:49:47 otoacoustic emission, comprehensi ve 2022 023 [email or web address] Not available 3 10:49:46 Medication Orders cefdinir 300 mg capsule 2022 023 [email or web address] [id number], [address] [place] [address], [address], 3 15:57:18 cephalexin 500 mg capsule 2022 023 [email or web address] [id number], [address] [place] [address], [address], 3 17:28:31 montelukast 10 mg tablet 2022 023 EMILY [id number], [address] [place] [address], [address], 10:47:47 ipratropium bromide 42 mcg (0.06 %) nasal spray 2022 023 [email or web address] [id number], [address] [place] [address], [address], 15:38:49 Patient TargetsNo targets recorded. Patient Instructions Encounter Date Encounter Id Patient Instructions Last Modified By Organization Details Last Modified Time 12/09/2022 [id number] enlarged turbinates: care instructions [email or web address] Not available 12/09/2022 10:47:44 eustachian tube problems: care instructions [email or web address] Not available 12/09/2022 10:02:12 seasonal allergies: care instructions [email or web address] Not available 12/09/2022 10:47:45 2nd Allergy testing upon return. Pt is to start Montelukast and Ipratropium qd. Pt is to return in 1 week [email or web address] Not available 12/09/2022 10:49:39 12/18/2022 [id number] enlarged turbinates: care instructions Not available 05/14/2023 18:27:59 seasonal allergies: care instructions Not available 05/14/2023 18:27:59 Patient to [facility] allergy testing next week. [email or web address] Not available 12/18/2022 17:44:26 12/25/2022 [id number] enlarged turbinates: care instructions Not available 12/25/2022 17:48:00 chronic sinusiti s: care instructions Not available 12/25/2022 17:48:00 seasonal allergies: care instructions Not available 12/25/2022 17:48:00 Patient had environmental allergy testing done in office today with positive findings, will start Cephalexin and f/u in 3 moths to see how meds are working and to discuss possible allergy injections with Kinsey. [email or web address] Not available 03/26/2023 13:44:12 03/27/2023 [id number] enlarged turbinates: care instructions [email or web address] Not available 03/27/2023 16:24:19 seasonal allergies: care instructions [email or web address] Not available 03/27/2023 16:24:19 ear infection (otitis media): care instructions [email or web address] Not available 03/27/2023 16:24:19 continue use of augmentin and start cefdinr 7 days. return in 10 days. [email or web address] Not available 03/27/2023 16:22:47 Reason for Referral None Reported. Results Created Date Observation Date Name Description Value Unit Range Abnormal Flag Note LastModifiedBy Organization Detail LastModifiedTime 01/15/20 23 01/14/2023 aller gy injec tion (PROC ) Unknown Analyte 2022 Not Available Daljit hunt MD [address] [place] [address], [address], 01/14/2023 11:53:24 01/15/20 23 01/14/2023 aller gy injec tion (PROC ) Unknown Analyte 0.[address] MD [address] [place] [address], [address], 01/14/2023 11:53:24 01/15/20 23 01/14/2023 aller gy injec tion (PROC ) Unknown Analyte 0.[address] MD [address], [address], 01/14/2023 11:53:24 01/15/20 23 01/14/2023 aller gy injec tion (PROC ) Unknown Analyte No Not Available Daljit Lane MD [address], [address], 01/14/2023 11:53:24 01/15/20 23 01/14/2023 aller gy injec tion (PROC ) Unknown Analyte LEVEL 6 NR Not Available Daljit hunt MD [address], [address], 01/14/2023 11:53:24 01/15/20 23 01/14/2023 aller gy injec tion (PROC ) Unknown Analyte LK Not Available Daljit Lane MD [address] [place] [address], [place], [address], 01/14/2023 11:53:24 12/09/19 23 acous tic immit ance No observ ation record ed. [email or web address] Not Available 2022 10:03:50 12/09/19 23 audio gram, compr ehens wilfrido No observ ation record ed. [email or web address] Not Available 2022 10:04:48 12/09/19 23 otoac ousti c emiss ion, compr ehens wilfrido No observ ation record ed. [email or web address] Not Available 2022 10:05:53 Result Notes None recorded. Procedures Surgical History Date Name Laterality Status Provider Name and Address Organization Details Recorded Time [address] Maranda [address] MD, [place] 03/27/2023 16:13:32 [address]anda Lane [place], [place] 03/27/2023 16:13:37 3 Nasal Endoscopy completed Marnie Rothman [address], [address], [place] - Daljit Lane [place], [place] 03/26/2023 17:28:37 3 Nasal Endoscopy completed Maranda Lane [place], [place] 12/18/2022 17:43:01 [address] completed Maranda Lane [place], [place] 01/30/2023 15:11:00 [address] Lavage completed Maranda Lane [place], [place] 01/30/2023 15:11:02 Imaging Results None recorded. Procedure Notes None recorded. Medical Equipment None Reported. Allergies Allergen ID Allergen Name Allergen Category Reaction Reaction Severity Criticality Documentation Date Start Date Code Code System Note Provider Name and Address Organization Details Recorded Time 17981 Substance with sulfonami de structure and antibacte rial mechanism of action (substanc e) medicatio n Not available Not available Not available 12/09/2022 35343 8003 SNOMED CICI Morrison MD, [place] 3 09:16:35 56124 cow milk allergeni c extract food,medi cation Not available Not available Not available 12/09/2022 36370 5 RxNorm CICI Morrison [place], [place] 3 09:16:40 Medications Name Sig Start Date Stop Date Status Note LastModified by Organization Details LastModified Time amoxicillin 500 mg capsule TAKE 1 CAPSULE 3 TIMES A DAY UNTIL FINISHED active Not Available Not Available No t Available tizanidine 2 mg tablet TAKE 1 TABLET BY MOUTH THREE TIMES A DAY NEEDED active Not Available Not Available No t Available cetirizine 10 mg tablet TAKE 1 TABLET BY MOUTH EVERY DAY UNTIL DIRECTED TO STOP active Not Available Not Available No t Available acetaminophe n 300 mg-codeine 30 mg tablet TAKE 1 TABLET BY MOUTH EVERY 12 HOURS NEEDED FOR 30 DAYS active Not Available Not Available No t Available amoxicillin 875 mg tablet TAKE 1 TABLET BY MOUTH EVERY 12 HOURS FOR 10 DAYS active Not Available Not Available Not Available meclizine 25 mg tablet TAKE 1 TABLET (25 MG) BY MOUTH 3 TIMES A DAY NEEDED FOR NAUSEA OR FOR DIZZINESS active Not Available Not Available No t Available benzonatate 100 mg capsule TAKE 1 CAPSULE (ORAL) 3 TIMES PER DAY FOR 5 DAYS TAKE WITH PLENTY OF WATER active Not Available Not Available No t Available doxycycline monohydrate 100 mg capsule TAKE 1 CAPSULE BY MOUTH TWICE A DAY active Not Available Not Available No t Available cephalexin 500 mg capsule Take 1 capsule every 6 hours by oral route as directed for 30 days. 2022 active Not Available Not Available Not Avai lable Synthroid 75 mcg tablet active Not Available Not Available N ot Available montelukast 10 mg tablet Take 1 tablet every day by oral route as directed for 30 days. active Not Available Not Available No t Available hydroxyzine HCl 25 mg tablet TAKE 1 TABLET BY MOUTH TWICE DAILY NEEDED OR DIRECTED active Not Available Not Available Not Available metoprolol succinate ER 25 mg tablet,exten ded release 24 hr active Not Available Not Available Not Available ibuprofen 600 mg tablet TAKE 1 TABLET BY MOUTH EVERY 6 TO 8 HOURS NEEDED active Not Available Not Available No t Available methylpredni solone 4 mg tablets in a dose pack TAKE 6 TABLETS ON DAY 1 DIRECTED ON PACKAGE AND DECREASE BY 1 TAB EACH DAY FOR A TOTAL OF 6 DAYS active Not Available Not Available No t Available ipratropium bromide 42 mcg (0.06 %) nasal spray Accokeek 2 sprays 3 times a day by intranasal route as directed for 30 days. 2022 active Not Available Not Available Not Avai lable cefdinir 300 mg capsule Take 1 capsule every 12 hours by oral route as directed for 30 days. 2022 active Not Available Not Available Not Avai lable fluticasone propionate 50 mcg/actuatio n nasal spray,suspen minda SPRAY 1 SPRAY IN EACH NOSTRIL DAILY active Not Available Not Available No t Available amoxicillin 875 mg-potassium clavulanate 125 mg tablet TAKE 1 TABLET BY MOUTH IN THE MORNING AND BEFORE BEDTIME FOR 10 DAYS active Not Available Not Available No t Available estradiol 0.025 mg/24 hr semiweekly transdermal patch active Not Available Not Available Not Available Mucinex 600 mg tablet, extended release active Not Available Not Available Not Available rosuvastatin 10 mg tablet active Not Available Not Available Not Available ibandronate 150 mg tablet active Not Available Not Available Not Available Ubrelvy 100 mg tablet TAKE 1 TABLET ORALLY DAILY NEEDED MAY TAKE SECOND DOSE AT LEAST 2HRS. AFTER FIRST DOSE NEEDED active Not Available Not Available No t Available BinaxNOW COVID-19 Ag Self Test kit USE DIRECTED active Not Available Not Available No t Available Vitals Date Recorded Body weight Body mass index (BMI) Body height Provider Name and Address Organization Details Last Updated DateTime 12/09/2022 08549.68 g 21.4 kg/m2 160.[address] [place], [place] 12/09/2022 09:17:53 Date Recorded Body height Body mass index (BMI) Body weight Provider Name and Address Organization Details Last Updated DateTime 12/18/2022 160.02 cm 21.4 kg/m2 [address] [place] 12/18/2022 17:41:30 Date Recorded Body height Body mass index (BMI) Body weight Provider Name and Address Organization Details Last Updated DateTime 03/27/2023 160.02 cm 21.4 kg/m2 79284.68 g Maranda Mary [place] - Daljit Lane [place], [place] 03/27/2023 16:07:51 Social History None recorded. Functional Status Question Answer Note LastModified by Organizat ion Details LastModified Time What is your level of alcohol consumption? Occasional [email or web address] Information not available 12/09/2022 Mental Status None recorded. Family History Nothing Reported. Medical History Condition Response Heart Problems Y Other N Thyroid Disease Y High Blood Pressure Y Epilepsy (seizures) N Parkinson's Disease N Blood Transfusion N Heart Arrhythmia N Nervous Disorder N Sinus Disease N Meningitis/Enecephalitis N Glaucoma N Artificial Heart Valves N Elevated Triglycerides N Anemia N Multiple Sclerosis N Hemophilia/Bleeding Problems N Elevated Cholesterol Y Ulcer (Stomach) N Alzheimer's Disease N Diabetes N Rheumatic Fever N Dizziness Y Arthritis Y High Risk for AIDS N HIV Positive or AIDS N Heart Murmur N Sickle Cell N Tuberculosis N Circulartory Problems N Cancer Y Stroke N Asthma N Heart Attack N Allergies Y Osteporosis Y Jaundice N GERD N Hepatitis N Liver Disease N Heart Disease N Headaches Y Kidney Disease N Gynecological HistoryNo gynecological history recorded. Obstetrics History GPAL:G 0 P 0 0 0 0 Past Encounters Encounter ID Performer Location Encounter Start Date Encounter Closed Date Diagnosis/Indication Diagnosis SNOMED-CT Code Diagnosis ICD10 Code Diagnosis Note [id number] Marnie Rothman [facility] [address] 12/09/2022 08:45:25 12/09/2022 10:49:46 Dysfunction of eustachian tube 34878880 H68.013 Seasonal a llergic rhinitis 644208892 J30.2 Hypertroph y of nasal turbinates 26906712 J34.3 Congenital deviation of nasal septum 68438724 Q67.4 Nasal congestion 2742026 0 R09.81 Posterior rhinorrhea 758 84758 R09.82 Impacted c erumen of bilateral ears 7215435603 485675 H61.[id number] MD [address] [address] 12/18/2022 16:55:10 05/16/2023 08:44:03 Seasonal allergic rhinitis 275642639 J30.2 Hypertroph y of nasal turbinates 88326030 J34.3 Congenital deviation of nasal septum 86414234 Q67.4 Nasal obstruction 240170 000 J34.89 [id number] BHAVYA Ramsey-[address] [address] 12/25/2022 16:51:06 03/27/2023 15:03:43 Seasonal allergic rhinitis 577645900 J30.2 Hypertroph y of nasal turbinates 37684530 J34.3 Congenital deviation of nasal septum 97982354 Q67.4 Nasal obstruction 945600 000 J34.89 Posterior rhinorrhea 758 97212 R09.82 Pain of ear 054609968 H9 2.09 Sinusitis 11314972 J32.[id number] MD [address] [address] 03/27/2023 15:52:31 05/29/2023 11:52:20 Seasonal allergic rhinitis 398056230 J30.2 Hypertroph y of nasal turbinates 54094030 J34.3 Congenital deviation of nasal septum 55969655 Q67.4 Nasal obstruction 753058 000 J34.89 Impacted c erumen in right ear 5168060205 107962 H61.21 Otitis media 40070469 H6 6.91 Health Concerns Section Related Observation LastModified by Organization Detai ls LastModified Time None Recorded Concern Status LastModified by Organization Details LastModified Time None Recorded Advance Directives Directive None Recorded Payers Encounter Date Sequence Insurance Name Policy Number Policy Cai Covered Member ID Cai Member ID Guarantor Name 12/09/2022 1 [employer] [id number] Marissa Barbosa [id number] Marissa Barbosa 12/18/2022 1 [employer] [id number] Marissa Barbosa [id number] Marissa Barbosa 12/25/2022 1 [employer] [id number] Marissa Barbosa [id number] Marissa Barbosa 03/27/2023 1 [employer] [id number] Marissa Barbosa [id number] Marissa M Kus OBGyn Episode No OBEpisode recorded.
--- OUTSIDE RECORDS SUMMARY | 2025-03-29 10:26 | XMS_ITS | Clinical Summary ---
Author Organization [facility] Address [address] [place] [place] [address] Care Team Providers Care Traveling Clerk Name Role Phone Unavailable Primary Care Provider Unavailabl e Source Comments [facility],non-owned Affiliates and Associated Physician Practices is amultiple site organization consisting of ambulatory clinics and hospital sitesin [place], [place], [place] and [place]. This disclosure is being madepursuant to the Care Everywhere program and may not contain all information available regarding this patient. Last updated 18.[facility] cuaQea Social History Tobacco Use Types Packs/Day Years Used Date Smoking Tobacco: Never Assessed Comments Unknown Sex and Gender Information Value Date Recorded Sex Assigned at Not on file Legal Sex Female 7:04 AM CDT Gender Identity Not on file Sexual Orientation Not on file Plan of Treatment Health Maintenance Due Date Last Done Comments COLOGUARD (AGES 45-75) - COL ON CA SCREENING 1960 COLON MONITORING 1960 COLONOSCOPY - COLON CA SCREENING 1960 CT COLONOGRAPHY - COLON CA SCREENING 1960 Colorectal Cancer Screening 1960 FIT - COLON CA SCREENING 1960 FLEX SIG - COLON CA SCREENING 1960 LIPID TESTING 1960 MAMMOGRAM 1960 PAP SMEAR 1960 HIV SCREENING 1975 HEPATITIS C SCREENING 06/27/1978 DTAP/TDAP/TD VACCINES (1 - Tdap) 1979 PNEUMOCOCCAL VACCINE 50+ (1 of 1 - PCV) 2010 ZOSTER VACCINE (1 of 2) 2010 COVID-19 VACCINE ( - 2023-2 5 season) 2024 DEPRESSION SCREENING 10/20/2024 INFLUENZA VACCINE (Season Ended) 2025 Respiratory Syncytial Virus (RSV) Vaccine Pt: or over 60 yrs (1 - 1-dose 75+ series) 2035 HEPATITIS B VACCINE Aged Out No longe r eligible based on patient's age to complete this topic HIB VACCINE Aged Out No longer eligi ble based on patient's age to complete this topic HPV VACCINE Aged Out No longer eligi ble based on patient's age to complete this topic MENINGOCOCCAL (Group B) VACC INE SHARED DECISION-MAKING Aged Out No longer eligibl e based on patient's age to complete this topic MENINGOCOCCAL GROUPS A/C/Y/W VACCINE Aged Out No longer eligible b ased on patient's age to complete this topic Insurance Member Subscriber Plan / Payer (Ef fective for All Dates) Name:Marissa Vicente Member ID:Not on file Relation to Subscriber:Not on file Name:MARISSA VICENTE Subscriber ID:Not on file Address: [address] [place] [address] Payer ID:Not on file Group ID:Not on file Type:Self Pay Address: [place], [place] [employer] SELF PAY NO INSURANCE Member Subscriber Plan / Payer (Ef fective for All Dates) Name:Marissa Vicente Member ID:Not on file Relation to Subscriber:Not on file Name:MARISSA VICENTE Subscriber ID:Not on file Address: [address] [id number] Payer ID:Not on file Group ID:Not on file Type:Self Pay Address: [place], [place] SELF PAY NO INSURANCE Member Subscriber Plan / Payer (Ef fective for All Dates) Name:Marissa Vicente Member ID:Not on file Relation to Subscriber:Not on file Name:MARISSA VICENTE Subscriber ID:Not on file Address: [address] [place] [address] Payer ID:Not on file Group ID:Not on file Type:Self Pay Address: [place], [place]
== END 2025-03-29 09:43 | disposition home or self-care (01) ==
PROVIDERS: PCP Family Medicine; Visit Provider Student in an Organized Health Care Education/Training Program
DX: Z12.31 Encounter for screening mammogram for malignant neoplasm of breast (principal); M85.89 Other specified disorders of bone density and structure, multiple sites; Z78.0 Asymptomatic menopausal state
CPT/HCPCS: 77063; 77067; 77080

== ENCOUNTER 2025-04-28 15:38 | Outpatient (CLI) | payer BC, SELFPAY ==
--- NOTE | ~2025-04-28 | XR_ITS ---
EXAM/PROCEDURE: XR abdomen/kub 1V - 04/28/2025 15:46 CDT HISTORY: 64 years old Female with Calculus of kidney COMPARISON: None available. TECHNIQUE: AP view(s) of the abdomen. FINDINGS: The bowel gas pattern is normal. There is no evidence for obstruction. No free intraperitoneal air is identified on this supine radiograph. The visualized soft tissue shadows are unremarkable. Degenerative changes are seen. Mild levoscoliosis. Visualized portions of lung bases are clear. IMPRESSION: No acute process. Reviewed, dictated and finalized at location A. IMPRESSION: No acute process.
== END 2025-04-28 15:39 | disposition home or self-care (01) ==
LOC: MICIMG 15:42
PROVIDERS: PCP Family Medicine; Visit Provider Nurse Practitioner
DX: N20.0 Calculus of kidney (principal)
CPT/HCPCS: 74018